=== PATIENT | female | born 1980 | race Hispanic/Latino ===

== ENCOUNTER 2018-11-02 21:12 | Inpatient (IN) | payer MEDICARE ==
--- NOTE | 2018-11-02 21:45 | Emergency Department Report ---
Blank Doc - Documentation Documentation: This is a 38-year-old female that presents with chest pain and hematemesis. Patient is on coumadin. This initial assessment/diagnostic orders/clinical plan/treatment(s) is/are subject to change based on patient's health status, clinical progression and re- assessment by fellow clinical providers in the ED. Further treatment and workup at subsequent clinical providers discretion. Patient/guardians urged not to elope from the ED as their condition may be serious if not clinically assessed and managed. Initial orders include: 1- Patient sent to MAIN ED for further evaluation and treatment 2- labs 3- EKG 4- CXR
[2018-11-02] MEDS ORDERED: NACL 0.9% 1000 ML 1,000 ML IV ONE (22:53)
[2018-11-02] MEDS ORDERED: SUBLIMAZE IV ONE (23:03)
[2018-11-02] MEDS ORDERED: PROTONIX IV ONE (23:03)
[2018-11-02] MEDS ORDERED: ZOFRAN IV ONE (23:03)
--- NOTE | 2018-11-02 23:11 | Emergency Department Report ---
HPI - General Chief Complaint: Chest Pain Time Seen by Provider: 11/02/18 21:42 - HPI HPI: Room 5 The patient is a 38-year-old female presenting with a chief complaint of hematemesis. Patient states her symptoms began 43.5 hours ago with Sharath bright hematemesis. Patient states she then developed substernal chest pain described as a pressure associated with intermittent sharpness radiating to the left shoulder. Patient states it feels as though there is 100 pounds sitting on her chest. Patient denies shortness of breath or diaphoresis. The patient has a history of protein C and S deficiency is currently on Coumadin. The patient states her last INR 1 week ago was approximately 3.2 (INR goal 3.5-4). The patient currently gives her pain score 7/10. Location: [See above] Duration: [See above] Quality: [See above] Severity: [See above] Timing: [See above] Context: [See above] Modifying factors: [See above] Associated signs and symptoms: [see above] ED Past Medical Hx - Past Medical History Previous Medical History?: Yes Hx CVA: Yes Additional medical history: Protein C and S deficiency, coronary artery disease - Surgical History Past Surgical History?: Yes Additional Surgical History: Gastrectomy, small bowel pull-through, herniorrhaphy, PowerPort, angioplasty. Hysterectomy - Family History Family history: no significant - Social History Smoking Status: Never Smoker Substance Use Type: None (denies illicit drug use) - Medications Home Medications: Home Medications Medication Instructions Recorded Confirmed Last Taken Type Aspirin [Aspirin BABY CHEW TAB] 1 tab PO DAILY 11/03/18 11/03/18 Unknown History Citalopram [celeXA] 1 tab PO DAILY 11/03/18 11/03/18 Unknown History Pantoprazole [Protonix TAB] 1 tab PO DAILY 11/03/18 11/03/18 Unknown History Promethazine [Phenergan] 1 tab PO Q8HR PRN 11/03/18 11/03/18 Unknown History Warfarin [Coumadin] 20 mg PO DAILY 11/03/18 11/03/18 Unknown History lamoTRIgine [LaMICtal] 75 mg PO BID 11/03/18 11/03/18 Unknown History ED Review of Systems ROS: Stated complaint: CHEST PAIN, VOMITING BLOOD Other details as noted in HPI Constitutional: denies: diaphoresis Eyes: denies: eye pain ENT: denies: throat pain Respiratory: shortness of breath Cardiovascular: chest pain Endocrine: no symptoms reported Gastrointestinal: nausea, vomiting, hematemesis. denies: abdominal pain Genitourinary: denies: dysuria Musculoskeletal: denies: back pain Neurological: denies: headache Physical Exam - Physical Exam Vital Signs: Vital Signs 11/02/18 21:43 Temperature 99.3 F Pulse Rate 126 H Respiratory 22 Rate Blood Pressure 119/85 O2 Sat by Pulse 100 Oximetry Physical Exam: GENERAL: The patient is well-developed well-nourished female lying on stretcher not appearing to be in acute distress. [] HEENT: Normocephalic. Atraumatic. Extraocular motions are intact. Patient has moist mucous membranes. NECK: Supple. Trachea midline CHEST/LUNGS: Clear to auscultation. There is no respiratory distress noted. HEART/CARDIOVASCULAR: Regular. There is no tachycardia. There is no gallop rub or murmur. ABDOMEN: Abdomen is soft, with mild left upper quadrant and left lower quadrant discomfort to palpation. Patient has normal bowel sounds. There is no abdominal distention. SKIN: There is no rash. There is no edema. There is no diaphoresis. NEURO: The patient is awake, alert, and oriented. The patient is cooperative. The patient has normal speech MUSCULOSKELETAL: There is no evidence of acute injury. ED Course Vital Signs 11/02/18 21:43 Temperature 99.3 F Pulse Rate 126 H Respiratory 22 Rate Blood Pressure 119/85 O2 Sat by Pulse 100 Oximetry ED Medical Decision Making - Lab Data Result diagrams: 11/02/18 23:35 11/02/18 23:35 - EKG Data -: EKG Interpreted by Me EKG shows normal: sinus rhythm Rate: tachycardia (113 bpm) - EKG Data Interpretation: nonspecific ST-T wave anjali (diffuse ST depressions) - Radiology Data Radiology results: report reviewed (chest x-ray), image reviewed (chest x-ray) interpreted by me: Chest x-ray-no focal infiltrates, no pneumothorax. Port in place [facility] [address] [place] [address] XRay Report Signed Patient: JOSE RAMON RIZZO MR#: [id number] : 1980 Acct:[id number] Age/Sex: 38 / F ADM Date: 11/02/18 Loc: ED Attending Dr: Ordering Physician: RO MARTINS MD Date of Service: 11/02/18 Procedure(s): XR chest 1V ap Accession Number(s): [id number] cc: RO MARTINS MD Fluoro Time In Min utes: CHEST 1 VIEW 11/02/2018 11:01 PM INDICATION / CLINICAL INFORMATION: chest pain. COMPARISON: None available. FINDINGS: SUPPORT DEVICES: Right internal jugular Port-A-Cath has tip in SVC. HEART / MEDIASTINUM: No significant abnormality. LUNGS / PLEURA: No significant pulmonary or pleural abnormality. No pneumothorax. ADDITIONAL FINDINGS: Incidental note is made of a right axillary skin fold. IMPRESSION: 1. No acute findings. Signer Name: Maikol Serrano MD Signed: 11/02/2018 11:33 PM Workstation Name: [id number] Transcribed By: TL Dictated By: Maikol Serrano MD Electronically Authenticated By: Maikol Serrano MD Signed Date/Time: 11/02/182332 DD/ 31 TD/TT: - Differential Diagnosis upper GI bleed, ACS, pericarditis, GERD Critical care attestation.: If time is entered above; I have spent that time in minutes in the direct care of this critically ill patient, excluding procedure time. ED Disposition Clinical Impression: Upper GI bleed, Chest pain Disposition: OP ADMIT IP TO THIS HOSP Is pt being admited?: Yes Does the pt Need Aspirin: No Condition: Fair Instructions: Chest Pain (ED) Referrals: PRIMARY CARE, [Primary Care Provider] - 3-5 Days Time of Disposition: 01:14 (Hospitalist paged (Dr. Maritza Baum))
--- NOTE | 2018-11-02 23:37 | XRay Report ---
CHEST 1 VIEW 11/02/2018 11:01 PM INDICATION / CLINICAL INFORMATION: chest pain. COMPARISON: None available. FINDINGS: SUPPORT DEVICES: Right internal jugular Port-A-Cath has tip in SVC. HEART / MEDIASTINUM: No significant abnormality. LUNGS / PLEURA: No significant pulmonary or pleural abnormality. No pneumothorax. ADDITIONAL FINDINGS: Incidental note is made of a right axillary skin fold. IMPRESSION: 1. No acute findings. Signer Name: Maikol Serrano MD Signed: 11/02/2018 11:33 PM Workstation Name: [id number]
[2018-11-02 23:48] LABS: Bilirubin,Urine NEG (Negative); Blood,Urine NEG (Negative); Color,Urine Straw (Yellow); Protein,Urine <15 mg/dL mg/dL (Negative); Urobilinogen,Urine < 2.0 mg/dL (<2.0)
[2018-11-02 23:55] LABS: Amphetamine Screen,Urine PRESUMPTIVE NEGATIVE; Benzodiazepines Screen,Urine PRESUMPTIVE NEGATIVE; Cannabinoid Screen,Urine PRESUMPTIVE NEGATIVE; Cocaine Screen,Urine PRESUMPTIVE NEGATIVE; Methadone Screen,Urine PRESUMPTIVE NEGATIVE; Opiate Screen,Urine PRESUMPTIVE NEGATIVE
[2018-11-03] LABS: Basophils % (Auto) 0.6 % (0.0-1.8); Eosinophils # (Auto) 0.1 K/mm3 (0.0-0.4); Eosinophils % (Auto) 0.9 % (0.0-4.3); Hematocrit 23.7 % (30.3-42.9); Hemoglobin 7.9 gm/dl (10.1-14.3); Lymphocytes # (Auto) 0.9 K/mm3 (1.2-5.4); Lymphocytes % (Auto) 15.7 % (13.4-35.0); Mean Corpuscular HGB Conc 33 % (30-34); Mean Corpuscular Volume 93 fl (79-97); Monocytes # (Auto) 0.6 K/mm3 (0.0-0.8); Monocytes % (Auto) 10.4 % (0.0-7.3); Platelet Count 286 K/mm3 (140-440); Red Blood Count 2.56 M/mm3 (3.65-5.03); Red Cell Distribution Width 13.7 % (13.2-15.2)
[2018-11-03 00:21] LABS: Alanine Aminotransferase 11 units/L (7-56); Albumin 3.8 g/dL (3.9-5); BUN/Creatinine Ratio 13; Blood Urea Nitrogen 9 mg/dL (7-17); Calcium 8.2 mg/dL (8.4-10.2); Hemolysis Index 6
[2018-11-03 00:54] LABS: INR 1.1 (0.87-1.13)
[2018-11-03 00:55] LABS: Partial Thromboplastin Time 29.7 Sec. (24.2-36.6)
[2018-11-03] MEDS ORDERED: SUBLIMAZE IV ONE (01:00)
[2018-11-03] MEDS ORDERED: NITRO-BID 2% TP ONE (01:12)
[2018-11-03] MEDS: KCL 10MEQ/100ML 10 MEQ/100 ML BAG IV SCH ×3 (01:53→04:26)
[2018-11-03] MEDS ORDERED: SODIUM CHLORIDE FLUSH SYRINGE 10 ML IV PRN (03:10)
[2018-11-03] MEDS ORDERED: NITROSTAT SL PRN (03:10)
--- NOTE | 2018-11-03 03:18 | History and Physical Report ---
History of Present Illness Date of examination: 11/03/18 Date of admission: 11/02/2018 Chief complaint: chest pain and hemoptisis History of present illness: Pt is a 38-year-old female with PMHx of CAD s/p angiophy, strake, protein C and S deficiency with multiple blood clots who presents to the ER with c/o chest pain and hematemesis x 1 day. Patient states that she had 3 episodes of bright red blood hematemesis. Pt reports that she also developed a sudden substernal chest pain during vomiting, the pain is a pressure-like pain, it is sharp in nature and radiates to the to the left shoulder. Patient states that she feels like a heavy load was sitting on her chest. Patient reports a h/o CAD and cardiac angioplasty, she had recurrent blood clots with a fasciotomy in the left leg due to protein C and S, she is currently on Coumadin. Pt reports vomiting, denies pleuritic chest pain, she denies SOB, denies diaphoresis, denies recent travelling, denies ill contact, denies fever or chills, denies cough or chest congestion. In the ER, pt's INR was 1.0 today, which was approximately 3.2 one week ago, her chest x-ray was negative for cardiopulmonary findings. Past History Past Medical History: other (protein c&S deficiency) Past Surgical History: hysterectomy, hernia repair, Other (small frederic pull through, angioplasty, Port a cath insertion, gastrectomy) Social history: no significant social history Family history: no significant family history Medications and Allergies Allergies Allergy/AdvReac Type Severity Reaction Status Date / Time ceftriaxone [From Rocephin] Allergy Anaphylaxis Verified 11/02/18 21:51 ciprofloxacin [From Cipro] Allergy Anaphylaxis Verified 11/02/18 21:50 divalproex sodium Allergy Anaphylaxis Verified 11/02/18 21:51 [From Depakote] ketorolac [From Toradol] Allergy Hives Verified 11/02/18 21:49 levofloxacin [From Levaquin] Allergy Anaphylaxis Verified 11/02/18 21:50 metoclopramide [From Reglan] Allergy Hives Verified 11/02/18 21:49 iv contrast Allergy Hives Uncoded 11/02/18 21:49 Home Medications Medication Instructions Recorded Confirmed Last Taken Type Aspirin [Aspirin BABY CHEW TAB] 1 tab PO DAILY 11/03/18 11/03/18 Unknown History Citalopram [celeXA] 1 tab PO DAILY 11/03/18 11/03/18 Unknown History Pantoprazole [Protonix TAB] 1 tab PO DAILY 11/03/18 11/03/18 Unknown History Promethazine [Phenergan] 1 tab PO Q8HR PRN 11/03/18 11/03/18 Unknown History Warfarin [Coumadin] 20 mg PO DAILY 11/03/18 11/03/18 Unknown History lamoTRIgine [LaMICtal] 75 mg PO BID 11/03/18 11/03/18 Unknown History Active Meds: Active Medications Aspirin (Ecotrin) 325 mg PO QDAY ASHLEIGH Potassium Chloride (Kcl 10meq/100ml) 10 meq in 100 mls @ 100 mls/hr IV Q1H ASHLEIGH Stop: 11/03/18 04:59 Last Admin: 11/03/18 03:02 Dose: 100 mls/hr Documented by: Nitroglycerin (Nitrostat) 0.4 mg SL Q5M PRN PRN Reason: Chest Pain Sodium Chloride (Sodium Chloride Flush Syringe 10 Ml) 10 ml IV PRN PRN PRN Reason: LINE FLUSH Review of Systems Cardiovascular: chest pain Respiratory: hemoptysis Exam - Constitutional Vitals: Temp Pulse Resp BP Pulse Ox 98.3 F 84 10 L 115/74 100 11/03/18 00:07 11/03/18 02:30 11/03/18 02:30 11/03/18 02:30 11/03/18 02:30 General appearance: Present: no acute distress - EENT ENT: hearing intact - Neck Neck: Present: normal ROM - Respiratory Respiratory: bilateral: CTA - Cardiovascular Rhythm: other Heart Sounds: Present: S1 & S2, diastolic murmur - Extremities Extremities: no ischemia, No edema, normal color Peripheral Pulses: within normal limits - Abdominal General gastrointestinal: Present: non-tender, non-distended Female genitourinary: Present: deferred - Rectal Rectal Exam: deferred - Integumentary Integumentary: Present: warm, dry - Psychiatric Psychiatric: cooperative - Neurologic Neurologic: moves all extremities Results - Labs CBC & Chem 7: 11/02/18 23:35 11/02/18 23:35 Labs: Laboratory Last Values WBC 5.8 K/mm3 (4.5-11.0) 11/02/18 23:35 RBC 2.56 M/mm3 (3.65-5.03) L 11/02/18 23:35 Hgb 7.9 gm/dl (10.1-14.3) L 11/02/18 23:35 Hct 23.7 % (30.3-42.9) L 11/02/18 23:35 MCV 93 fl (79-97) 11/02/18 23:35 MCH 31 pg (28-32) 11/02/18 23:35 MCHC 33 % (30-34) 11/02/18 23:35 RDW 13.7 % (13.2-15.2) 11/02/18 23:35 Plt Count 286 K/mm3 (140-440) 11/02/18 23:35 Lymph % (Auto) 15.7 % (13.4-35.0) 11/02/18 23:35 [place] % (Auto) 10.4 % (0.0-7.3) H 11/02/18 23:35 Eos % (Auto) 0.9 % (0.0-4.3) 11/02/18 23:35 Baso % (Auto) 0.6 % (0.0-1.8) 11/02/18 23:35 Lymph # 0.9 K/mm3 (1.2-5.4) L 11/02/18 23:35 [place] # 0.6 K/mm3 (0.0-0.8) 11/02/18 23:35 Eos # 0.1 K/mm3 (0.0-0.4) 11/02/18 23:35 Baso # 0.0 K/mm3 (0.0-0.1) 11/02/18 23:35 Seg Neutrophils % 72.4 % (40.0-70.0) H 11/02/18 23:35 Seg Neutrophils # 4.2 K/mm3 (1.8-7.7) 11/02/18 23:35 PT 13.9 Sec. (12.2-14.9) 11/02/18 23:35 INR 1.10 (0.87-1.13) 11/02/18 23:35 APTT 29.7 Sec. (24.2-36.6) 11/02/18 23:35 2395 ng/mlDDU (0-234) H 11/03/18 00:20 Sodium 142 mmol/L (137-145) 11/02/18 23:35 Potassium 3.1 mmol/L (3.6-5.0) L 11/02/18 23:35 Chloride 105.6 mmol/L (98-107) 11/02/18 23:35 Carbon Dioxide 20 mmol/L (22-30) L 11/02/18 23:35 20 mmol/L 11/02/18 23:35 BUN 9 mg/dL (7-17) 11/02/18 23:35 0.7 mg/dL (0.7-1.2) 11/02/18 23:35 Estimated GFR > 60 ml/min 11/02/18 23:35 13 % 11/02/18 23:35 Glucose 149 mg/dL (65-100) H 11/02/18 23:35 Calcium 8.2 mg/dL (8.4-10.2) L 11/02/18 23:35 0.20 mg/dL (0.1-1.2) 11/02/18 23:35 AST 17 units/L (5-40) 11/02/18 23:35 ALT 11 units/L (7-56) 11/02/18 23:35 54 units/L (35-129) 11/02/18 23:35 < 0.010 ng/mL (0.00-0.029) 11/03/18 01:46 6.4 g/dL (6.3-8.2) 11/02/18 23:35 3.8 g/dL (3.9-5) L 11/02/18 23:35 1.5 % 11/02/18 23:35 Straw (Yellow) 11/02/18 23:28 Clear (Clear) 11/02/18 23:28 6.0 (5.0-7.0) 11/02/18 23:28 Ur Specific [place] 1.006 (1.003-1.030) 11/02/18 23:28 <15 mg/dl mg/dL (Negative) 11/02/18 23:28 Neg mg/dL (Negative) 11/02/18 23:28 Neg mg/dL (Negative) 11/02/18 23:28 Neg (Negative) 11/02/18 23:28 Neg (Negative) 11/02/18 23:28 Neg (Negative) 11/02/18 23:28 < 2.0 mg/dL (<2.0) 11/02/18 23:28 Ur Leukocyte Esterase Neg (Negative) 11/02/18 23:28 1.0 /HPF (0.0-6.0) 11/02/18 23:28 2.0 /HPF (0.0-6.0) 11/02/18 23:28 U Epithel Cells (Auto) 5.0 /HPF (0-13.0) 11/02/18 23:28 Presumptive negative 11/02/18 23:28 Presumptive negative 11/02/18 23:28 Ur Barbiturates Screen Presumptive negative 11/02/18 23:28 Ur Phencyclidine Scrn Presumptive negative 11/02/18 23:28 Ur Amphetamines Screen Presumptive negative 11/02/18 23:28 U Benzodiazepines Scrn Presumptive negative 11/02/18 23:28 Presumptive negative 11/02/18 23:28 U Marijuana (THC) Screen Presumptive negative 11/02/18 23:28 Disclamer 11/02/18 23:28 Blood Type O POSITIVE 11/02/18 23:50 Antibody Screen Negative 11/02/18 23:50 Assessment and Plan Assessment and plan: Chest pain r/o ACS vrs other etiology Hemoptisis (likely due to coumadin therapy) H/o protein C&S deficiency CAD (h/o angioplasty) CVA no residual deficits H/o MVP Multiple DVTs (on Cou[place]) Subtherapeutic INR Hypokalemia Plan: Admit to medtele Consult cardiology Consult hematology CT of the chest to r/o PE Continue CE q6hr x 2 more Monitor vital signs q4hr Continue home meds (hold coumadin, due to hemoptisis) Replace K+ Plan of care d/w pt, voiced understading Pt's condition and plan of care d/w Dr Baum Advance Directives: Yes Plan of care discussed with patient/family: Yes
--- NOTE | 2018-11-03 06:07 | Event Note ---
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 Also stated that she had 4 episodes of hematemesis. She is maintained on 20 mg of Coumadin and yesterday her INR was therapeutic. Physical exam is benign no hematemesis noted in the emergency room. After check to d-dimer which is elevated, we'll go ahead and obtain a CT chest to rule out PE. In addition consult GI and hematology. He would stress test and cardiac enzymes. Discussed with nurse practitioner
[2018-11-03] MEDS ORDERED: LEXISCAN IV ONE (07:01)
[2018-11-03 08:46] LABS: Iron 35 ug/dL (37-170); Total Iron Binding Capacity 246 mcg/dL (250-450)
--- NOTE | 2018-11-03 08:54 | Event Note ---
Date: 11/03/18 This is a follow-up from an admission earlier this morning. Patient seen and examined. We will continue the plan as outlined in H&P. Await CTA of the chest and GI consultation.
[2018-11-03 10:04] LABS: BUN/Creatinine Ratio 13; Blood Urea Nitrogen 9 mg/dL (7-17); Calcium 8.3 mg/dL (8.4-10.2); Chol/HDL Ratio 2.16 %; HDL Cholesterol 54 mg/dL (40-59); Hemolysis Index 5; LDL Cholesterol,Direct 62 mg/dL (50-130)
[2018-11-03] MEDS: MORPHINE IV PRN ×2 (12:33→18:15)
--- NOTE | 2018-11-03 14:25 | Nuclear Medicine Report ---
VENTILATION PERFUSION PULMONARY SCINTIGRAPHY HISTORY: shortness of breath COMPARISON: 11/02/18 chest radiograph. TECHNIQUE: Radiopharmaceutical was inhaled. Tc-99m-MAA was then injected. Ventilation and perfusion images were acquired. RADIOPHARMACEUTICAL: 7.5 mCi of Xe-133 inhaled 5.2 mCi of Tc-99m-MAA injected FINDINGS: VENTILATION: No significant air trapping or defect. PERFUSION: No significant segmental or non-segmental defect. Additional Findings: None. IMPRESSION: 1. Low probability for pulmonary embolism. Signer Name: Vance Correa Jr, MD Signed: 11/03/2018 2:21 PM Workstation Name: [id number]
[2018-11-03] MEDS ORDERED: FLUSH HEPARIN IV ONE ×4 (15:42→17:59)
[2018-11-03] MEDS: ZOFRAN IV PRN (15:56)
[2018-11-03] MEDS: NACL 0.9% 1000 ML 1,000 ML IV SCH (15:56)
[2018-11-03 16:17] LABS: Basophils % (Auto) 0.9 % (0.0-1.8); Eosinophils # (Auto) 0.1 K/mm3 (0.0-0.4); Eosinophils % (Auto) 2.4 % (0.0-4.3); Hemoglobin 6.1 gm/dl (10.1-14.3); Lymphocytes # (Auto) 0.5 K/mm3 (1.2-5.4); Lymphocytes % (Auto) 22.1 % (13.4-35.0); Mean Corpuscular HGB Conc 33 % (30-34); Mean Corpuscular Volume 96 fl (79-97); Monocytes # (Auto) 0.3 K/mm3 (0.0-0.8); Monocytes % (Auto) 12.2 % (0.0-7.3); Platelet Count 133 K/mm3 (140-440); Red Cell Distribution Width 14.2 % (13.2-15.2)
[2018-11-03 16:45] LABS: Red Blood Count 1.97 M/mm3 (3.65-5.03)
[2018-11-03 16:51] LABS: Hematocrit 18.9 % (30.3-42.9)
[2018-11-03] MEDS ORDERED: NACL 0.9% 500 ML 500 ML IV NR (17:05)
[2018-11-03 18:29] LABS: Hematocrit 25.9 % (30.3-42.9); Hemoglobin 8.7 gm/dl (10.1-14.3); Mean Corpuscular HGB Conc 34 % (30-34); Mean Corpuscular Volume 93 fl (79-97); Platelet Count 209 K/mm3 (140-440); Red Blood Count 2.79 M/mm3 (3.65-5.03); Red Cell Distribution Width 14.1 % (13.2-15.2)
--- NOTE | 2018-11-03 18:30 | Event Note ---
Date: 11/03/18 - full GI consult dictated - awaiting w/u for possible P.E> and then cardiac clearance for egd - will follow
[2018-11-03 18:58] LABS: INR 1.15 (0.87-1.13)
[2018-11-03 20:25] LABS: Partial Thromboplastin Time 222.7 Sec. (24.2-36.6)
[2018-11-03] MEDS ORDERED: DILAUDID IV ONE (21:02)
[2018-11-03 22:02] LABS: Basophils % (Auto) 0.8 % (0.0-1.8); Eosinophils # (Auto) 0.1 K/mm3 (0.0-0.4); Eosinophils % (Auto) 3.9 % (0.0-4.3); Hematocrit 25.2 % (30.3-42.9); Hemoglobin 8.4 gm/dl (10.1-14.3); Lymphocytes # (Auto) 1.2 K/mm3 (1.2-5.4); Lymphocytes % (Auto) 40.7 % (13.4-35.0); Mean Corpuscular HGB Conc 34 % (30-34); Mean Corpuscular Volume 93 fl (79-97); Monocytes # (Auto) 0.4 K/mm3 (0.0-0.8); Platelet Count 215 K/mm3 (140-440); Red Blood Count 2.71 M/mm3 (3.65-5.03); Red Cell Distribution Width 13.9 % (13.2-15.2)
[2018-11-03] MEDS: LaMICtal PO SCH (22:17)
[2018-11-03] MEDS ORDERED: PEPCID PO ONE (23:00)
[2018-11-03] MEDS ORDERED: BENADRYL PO NR (23:08)
[2018-11-03] MEDS ORDERED: DELTASONE PO ONE (23:15)
[2018-11-04] MEDS: DILAUDID IV PRN ×4 (00:26→23:38)
[2018-11-04] MEDS ORDERED: BENADRYL PO ONE ×2 (04:00→12:00)
[2018-11-04] MEDS ORDERED: PEPCID PO ONE ×2 (04:00→12:00)
[2018-11-04] MEDS ORDERED: DELTASONE PO ONE ×2 (04:00→12:00)
[2018-11-04] MEDS: NACL 0.9% 1000 ML 1,000 ML IV SCH ×2 (04:35→16:57)
[2018-11-04 04:56] LABS: Basophils % (Auto) 0.4 % (0.0-1.8); Eosinophils % (Auto) 0.1 % (0.0-4.3); Hematocrit 31.1 % (30.3-42.9); Hemoglobin 10.4 gm/dl (10.1-14.3); Lymphocytes # (Auto) 0.4 K/mm3 (1.2-5.4); Lymphocytes % (Auto) 12.6 % (13.4-35.0); Mean Corpuscular HGB Conc 33 % (30-34); Mean Corpuscular Volume 92 fl (79-97); Monocytes # (Auto) 0.1 K/mm3 (0.0-0.8); Monocytes % (Auto) 2.8 % (0.0-7.3); Platelet Count 216 K/mm3 (140-440); Red Blood Count 3.37 M/mm3 (3.65-5.03); Red Cell Distribution Width 13.9 % (13.2-15.2)
[2018-11-04 05:14] LABS: BUN/Creatinine Ratio 10; Blood Urea Nitrogen 6 mg/dL (7-17); Calcium 8.6 mg/dL (8.4-10.2); Hemolysis Index 3
[2018-11-04] MEDS: LaMICtal PO SCH ×2 (10:29→21:40)
[2018-11-04] MEDS: ECOTRIN PO SCH (10:29)
[2018-11-04] MEDS: ZOFRAN IV PRN ×2 (10:30→18:39)
[2018-11-04] MEDS: MORPHINE IV PRN ×2 (10:30→18:39)
--- NOTE | 2018-11-04 10:54 | Event Note ---
Date: 11/03/18 [id number]
[2018-11-04] MEDS ORDERED: FERRLECIT 125 MG in NACL 0.9% 100 ML IV ONE (10:56)
--- NOTE | 2018-11-04 10:58 | Consultation ---
REFERRING PHYSICIAN: Valeriano Montoya MD. INDICATIONS: 1. Hematemesis. 2. Anemia. HISTORY OF PRESENT ILLNESS: The patient is a 38-year-old white female with history of coronary artery disease, CVA, protein C and S deficiency, now been seen by GI for signs of upper gastrointestinal bleed. Per patient, she is status post subtotal gastrectomy in the past. The patient reports she is on Coumadin for protein C and protein S deficiency. The patient reports that she started having epigastric area chest pain with some nausea and then had multiple bouts of bright red and coffee-ground emesis. The patient should be noted to have history of pulmonary embolism in the past. The patient subsequently came to the Emergency Room. She reports no melena. She reports no recent diet or medication changes. The patient subsequently was admitted and GI consulted. PAST MEDICAL HISTORY: 1. Protein C and protein S deficiency. 2. Status post cerebrovascular accident. 3. Coronary artery disease, status post angioplasty. PAST SURGICAL HISTORY: 1. Status post hysterectomy. 2. Status post hernia repair. 3. Reported status post total gastrectomy. MEDICATIONS: Reviewed and updated in chart. ALLERGIES: CEFTRIAXONE, CIPRO, DEPAKOTE, TORADOL, LEVAQUIN, REGLAN. SOCIAL HISTORY: Denies alcohol, tobacco or drug abuse. FAMILY HISTORY: Negative for colon cancer, IBD, or liver disease. REVIEW OF SYSTEMS: GENERAL: Reports mild weakness. HEENT: No visual complaints or tinnitus. PULMONARY: No shortness of breath. No cough. No chest pain. GASTROINTESTINAL: Reports epigastric pain and hematemesis. All points of 13-point review of systems otherwise negative. PHYSICAL EXAMINATION: VITAL SIGNS: Temperature of 98.6, pulse 77, respiration 18, blood pressure 120/74. GENERAL: Fairly thin female in no acute distress. HEENT: Pupils equal, round and reactive. PULMONARY: Clear to auscultation bilaterally. CARDIOVASCULAR: Regular rate and rhythm. Normal S1, S2. ABDOMEN: Positive bowel sounds, soft. SKIN: No obvious rashes. LABORATORY DATA: Pertinent for white count of 5.8, hemoglobin and hematocrit of 7.9 and 23.7, platelet count of 286. Coags within normal limits. Chem-7 pertinent for potassium of 5.1. ASSESSMENT AND PLAN: A 38-year-old female with multiple past medical history including status post gastrectomy in the past and history of protein C and protein S deficiency and reported history of a pulmonary embolism in the past, on Coumadin, presented now with epigastric and chest pain with reported coffee-ground and bloody emesis. The patient shows signs of upper gastrointestinal bleed, but given her history of PE and cardiac disease, evaluation and other management is necessary. PLAN: 1. The patient is currently awaiting CTA versus a V/Q scan to rule out pulmonary embolism. 2. The patient has also been seen by Cardiology with plans for stress test. 3. We will follow hematocrit and transfuse as needed. 4. PPI IV b.i.d. 5. When cleared from a Cardiology standpoint as well as pulmonary standpoint, the patient will require EGD. 6. We will follow further recommendation based on progress. [facility]# [id number] CAB/NTS
--- NOTE | 2018-11-04 14:16 | Cat Scan Report ---
CT ABDOMEN AND PELVIS WITHOUT CONTRAST, 11/04/2018 INDICATION: Generalized abdominal pain. TECHNICAL: Multiple axial CT images of the abdomen and pelvis were acquired without intravenous contr ast. Sagittal and coronal reformats were obtained. All CTs at this facility utilize dose reduction techniques including automated exposure control, iterative reconstruction and weight based dosing whe n appropriate to reduce patient radiation dose to as low as reasonable achievable. COMPARISON: No relevant prior studies are available for comparison. FINDINGS: Limited imaging of the bilateral lung bases demonstrates no evidence of acute abnormality. Abdomen: Postsurgical changes of the stomach are noted. The gallbladder has been removed. Within the limitations of today's noncontrast technique, the pancreas, spleen, bilateral adrenal glands and bila teral kidneys show no definitive evidence of acute abnormality. Postsurgical changes are seen within the left abdomen. There is no evidence of bowel obstruction. Pelvis: No free fluid is seen in the pelvis. The urinary bladder appears grossly normal. Evaluation of bony structures demonstrates no evidence of acute bony abnormality. Evaluation of soft tissue structures demonstrates no evidence of acute soft tissue abnormality. IMPRESSION: 1. No CT evidence of acute inflammatory process within the abdomen or pelvis. 2. Additional findings as above. Signer Name: Roslyn Cruz MD Signed: 11/04/2018 2:11 PM Workstation Name: [id number]
--- NOTE | 2018-11-04 14:20 | Cat Scan Report ---
CT chest with and without contrast, 11/04/2018 Clinical information: Shortness of breath. History of pulmonary embolism. Technical: Multiple axial CT images of the chest were acquired with and without intravenous contrast. Sagittal and coronal reformats were obtained. All CTs at this facility utilized dose reduction techn iques including automated exposure control, iterative reconstruction and weight based dosing when yoel ropriate to reduce patient radiation dose to as low as reasonably achievable. Comparison: No relevant prior studies are available for comparison. Findings: The heart is normal in size. The thoracic aorta is normal in caliber. There is no evidence of pleural or pericardial effusion. Evaluation of the lung parenchyma shows no focal airspace disease. Evaluation of bony structures demonstrates no evidence of acute bony abnormality. Impression: 1. No evidence of acute pleural or parenchymal abnormality. Signer Name: Roslyn Cruz MD Signed: 11/04/2018 2:16 PM Workstation Name: [id number]
--- NOTE | 2018-11-04 14:47 | Progress Note ---
Assessment and Plan 1. Hematemesis - by report. Pt hemodynamically stable, and Hgb good. Pt states she has had this ongoing, and is s/p EGD 4 months ago with treatment of some type of ulcer. Also, she is s/p gastrectomy in ~ 2017, but the indication is unknown. - she may well have an anastomotic ulcer, and warrants EGD. - will await Cardiac clearance per Hospitalist prior to endoscopy, unless pt acutely decompensates and needs urgent EGD. - CT report noted, and unremarkable. - meantime, monitor H/H and transfuse as needed 2. Protein C and S deficiency - per Hematology. Subjective Date of service: 11/04/18 Interval history: Pt reports emesis of blood and dark material once this AM. No abd pain, N/V. Last BM was brown yesterday. Received 1 u pRBC, even after Hgb = 8.4. Objective - Constitutional Vitals: Vital Signs - 12hr 11/04/18 11/04/18 11/04/18 04:47 09:12 10:00 Temperature 98.0 F 97.9 F Pulse Rate 86 90 85 Respiratory 18 16 Rate Blood Pressure 120/85 122/82 O2 Sat by Pulse 98 100 Oximetry General appearance: Present: no acute distress - EENT Eyes: PERRL, EOM intact ENT: hearing intact - Gastrointestinal General gastrointestinal: Present: soft, non-tender - Labs CBC & Chem 7: 11/04/18 04:42 11/04/18 04:42 Labs: Abnormal lab results 11/03/18 11/03/18 11/03/18 Range/Units 16:00 17:40 17:40 WBC 2.5 L 3.4 L (4.5-11.0) K/mm3 RBC 1.97 L 2.79 L (3.65-5.03) M/mm3 Hgb 6.1 L 8.7 L (10.1-14.3) gm/dl Hct 18.9 L* 25.9 L D (30.3-42.9) % Plt Count 133 L (140-440) K/mm3 Lymph % (Auto) (13.4-35.0) % [place] % (Auto) 12.2 H (0.0-7.3) % Lymph # 0.5 L (1.2-5.4) K/mm3 Seg Neutrophils % (40.0-70.0) % Seg Neutrophils # 1.5 L (1.8-7.7) K/mm3 INR (0.87-1.13) APTT (24.2-36.6) Sec. BUN (7-17) mg/dL Creatinine (0.7-1.2) mg/dL Glucose (65-100) mg/dL Crossmatch See Detail 11/03/18 11/03/18 11/04/18 Range/Units 17:40 Unknown 04:42 WBC 2.8 L 2.9 L (4.5-11.0) K/mm3 RBC 2.71 L 3.37 L (3.65-5.03) M/mm3 Hgb 8.4 L (10.1-14.3) gm/dl Hct 25.2 L (30.3-42.9) % Plt Count (140-440) K/mm3 Lymph % (Auto) 40.7 H 12.6 L (13.4-35.0) % [place] % (Auto) 13.0 H (0.0-7.3) % Lymph # 0.4 L (1.2-5.4) K/mm3 Seg Neutrophils % 84.1 H (40.0-70.0) % Seg Neutrophils # 1.2 L (1.8-7.7) K/mm3 INR 1.15 H (0.87-1.13) APTT 222.7 H* (24.2-36.6) Sec. BUN (7-17) mg/dL Creatinine (0.7-1.2) mg/dL Glucose (65-100) mg/dL Crossmatch 11/04/18 Range/Units 04:42 WBC (4.5-11.0) K/mm3 RBC (3.65-5.03) M/mm3 Hgb (10.1-14.3) gm/dl Hct (30.3-42.9) % Plt Count (140-440) K/mm3 Lymph % (Auto) (13.4-35.0) % [place] % (Auto) (0.0-7.3) % Lymph # (1.2-5.4) K/mm3 Seg Neutrophils % (40.0-70.0) % Seg Neutrophils # (1.8-7.7) K/mm3 INR (0.87-1.13) APTT (24.2-36.6) Sec. BUN 6 L (7-17) mg/dL Creatinine 0.6 L (0.7-1.2) mg/dL Glucose 136 H (65-100) mg/dL Crossmatch Medications & Allergies - Medications Allergies/Adverse Reactions: Allergies ceftriaxone [From Rocephin] Allergy (Verified 11/02/18 21:51) Anaphylaxis ciprofloxacin [From Cipro] Allergy (Verified 11/02/18 21:50) Anaphylaxis divalproex sodium [From Depakote] Allergy (Verified 11/02/18 21:51) Anaphylaxis ketorolac [From Toradol] Allergy (Verified 11/02/18 21:49) Hives levofloxacin [From Levaquin] Allergy (Verified 11/02/18 21:50) Anaphylaxis metoclopramide [From Reglan] Allergy (Verified 11/02/18 21:49) Hives iv contrast Allergy (Uncoded 11/02/18 21:49) Hives Home Medications: Home Medications Medication Instructions Recorded Confirmed Last Taken Type Aspirin [Aspirin BABY CHEW TAB] 1 tab PO DAILY 11/03/18 11/03/18 Unknown History Citalopram [celeXA] 1 tab PO DAILY 11/03/18 11/03/18 Unknown History Pantoprazole [Protonix TAB] 1 tab PO DAILY 11/03/18 11/03/18 Unknown History Promethazine [Phenergan] 1 tab PO Q8HR PRN 11/03/18 11/03/18 Unknown History Warfarin [Coumadin] 20 mg PO DAILY 11/03/18 11/03/18 Unknown History lamoTRIgine [LaMICtal] 75 mg PO BID 11/03/18 11/03/18 Unknown History Active Medications: Generic Name Dose Route Start Last Admin Trade Name Freq PRN Reason Stop Dose Admin Aspirin 325 mg 11/04/18 10:00 11/04/18 10:29 Ecotrin PO Not Given QDAY ASHLEIGH Diphenhydramine HCl 50 mg 11/03/18 23:08 11/03/18 22:52 Benadryl PO 11/04/18 23:07 50 mg ONCE NR Administration Hydromorphone HCl 0.5 mg 11/03/18 22:21 11/04/18 14:13 Dilaudid IV 0.5 mg Q3H PRN Administration Pain , Severe (7-10) Sodium Chloride 1,000 mls @ 100 mls/hr 11/03/18 16:00 11/04/18 04:35 Nacl 0.9% 1000 Ml IV 100 mls/hr DIRECT ASHLEIGH Administration Lamotrigine 75 mg 11/03/18 22:00 11/04/18 10:29 Lamictal PO 75 mg BID SAHLEIGH Administration Morphine Sulfate 2 mg 11/03/18 12:22 11/04/18 10:30 Morphine IV 2 mg Q4H PRN Administration Pain, Moderate (4-6) Nitroglycerin 0.4 mg 11/03/18 03:10 11/03/18 20:36 Nitrostat SL 0.4 mg Q5M PRN Administration Chest Pain Ondansetron HCl 4 mg 11/03/18 15:00 11/04/18 10:30 Zofran IV 4 mg Q6H PRN Administration Nausea Sodium Chloride 10 ml 11/03/18 03:10 Sodium Chloride Flush Syringe 10 Ml IV PRN PRN LINE FLUSH
--- NOTE | 2018-11-04 16:01 | Progress Note ---
Assessment and Plan Assessment and plan: Hematemesis. GI consulted. EGD per GI after Cardiac clearance. Hypercoagulable. Prot C an S def. Hold on A/C given bleeding. After endoscopy, resume if ok with GI. Heme recommends d/c home with BID lovenox Chest pain. CT with no mention of PE. V/Q negative. Cardiology consulted Abd pain. CT A/P negative. Hx of CVA History Interval history: no new issues Hospitalist Physical - Constitutional Vitals: Temp Pulse Resp BP Pulse Ox 97.9 F 85 16 122/82 100 11/04/18 09:12 11/04/18 10:00 11/04/18 09:12 11/04/18 09:12 11/04/18 09:12 General appearance: Present: no acute distress - EENT Eyes: Present: PERRL, EOM intact ENT: hearing intact, clear oral mucosa, dentition normal - Neck Neck: Present: supple, normal ROM - Respiratory Respiratory effort: normal Respiratory: bilateral: CTA - Cardiovascular Rhythm: regular Heart Sounds: Present: S1 & S2. Absent: gallop, rub - Extremities Extremities: no ischemia, No edema, Full ROM - Abdominal General gastrointestinal: soft, non-tender, non-distended, normal bowel sounds - Integumentary Integumentary: Present: clear, warm, dry - Neurologic Neurologic: CNII-XII intact, moves all extremities Results - Labs CBC & Chem 7: 11/04/18 04:42 11/04/18 04:42 Labs: Laboratory Last Values WBC 2.9 K/mm3 (4.5-11.0) L 11/04/18 04:42 RBC 3.37 M/mm3 (3.65-5.03) L 11/04/18 04:42 Hgb 10.4 gm/dl (10.1-14.3) 11/04/18 04:42 Hct 31.1 % (30.3-42.9) 11/04/18 04:42 MCV 92 fl (79-97) 11/04/18 04:42 MCH 31 pg (28-32) 11/04/18 04:42 MCHC 33 % (30-34) 11/04/18 04:42 RDW 13.9 % (13.2-15.2) 11/04/18 04:42 Plt Count 216 K/mm3 (140-440) 11/04/18 04:42 Lymph % (Auto) 12.6 % (13.4-35.0) L 11/04/18 04:42 [place] % (Auto) 2.8 % (0.0-7.3) 11/04/18 04:42 Eos % (Auto) 0.1 % (0.0-4.3) 11/04/18 04:42 Baso % (Auto) 0.4 % (0.0-1.8) 11/04/18 04:42 Lymph # 0.4 K/mm3 (1.2-5.4) L 11/04/18 04:42 [place] # 0.1 K/mm3 (0.0-0.8) 11/04/18 04:42 Eos # 0.0 K/mm3 (0.0-0.4) 11/04/18 04:42 Baso # 0.0 K/mm3 (0.0-0.1) 11/04/18 04:42 Seg Neutrophils % 84.1 % (40.0-70.0) H 11/04/18 04:42 Seg Neutrophils # 2.5 K/mm3 (1.8-7.7) 11/04/18 04:42 PT 14.4 Sec. (12.2-14.9) 11/03/18 17:40 INR 1.15 (0.87-1.13) H 11/03/18 17:40 APTT 222.7 Sec. (24.2-36.6) H* 11/03/18 17:40 2395 ng/mlDDU (0-234) H 11/03/18 00:20 Sodium 139 mmol/L (137-145) 11/04/18 04:42 Potassium 4.5 mmol/L (3.6-5.0) D 11/04/18 04:42 Chloride 105.0 mmol/L (98-107) 11/04/18 04:42 Carbon Dioxide 22 mmol/L (22-30) 11/04/18 04:42 17 mmol/L 11/04/18 04:42 BUN 6 mg/dL (7-17) L 11/04/18 04:42 0.6 mg/dL (0.7-1.2) L 11/04/18 04:42 Estimated GFR > 60 ml/min 11/04/18 04:42 10 % 11/04/18 04:42 Glucose 136 mg/dL (65-100) H 11/04/18 04:42 Calcium 8.6 mg/dL (8.4-10.2) 11/04/18 04:42 Iron 35 ug/dL (37-170) L 11/03/18 Unknown TIBC 246 mcg/dL (250-450) L 11/03/18 Unknown 155.3 ng/mL (13.0-400.0) 11/03/18 Unknown 0.20 mg/dL (0.1-1.2) 11/02/18 23:35 AST 17 units/L (5-40) 11/02/18 23:35 ALT 11 units/L (7-56) 11/02/18 23:35 54 units/L (35-129) 11/02/18 23:35 < 0.010 ng/mL (0.00-0.029) 11/03/18 Unknown 6.4 g/dL (6.3-8.2) 11/02/18 23:35 3.8 g/dL (3.9-5) L 11/02/18 23:35 1.5 % 11/02/18 23:35 Triglycerides 76 mg/dL (2-149) 11/03/18 Unknown Cholesterol 117 mg/dL (50-199) 11/03/18 Unknown 62 mg/dL (50-130) 11/03/18 Unknown 54 mg/dL (40-59) 11/03/18 Unknown 2.16 % 11/03/18 Unknown Vitamin B12 740.3 pg/mL (211-911) 11/03/18 Unknown 13.36 ng/mL (7.3-26.0) 11/03/18 Unknown Straw (Yellow) 11/02/18 23:28 Clear (Clear) 11/02/18 23:28 6.0 (5.0-7.0) 11/02/18 23:28 Ur Specific [place] 1.006 (1.003-1.030) 11/02/18 23:28 <15 mg/dl mg/dL (Negative) 11/02/18 23:28 Neg mg/dL (Negative) 11/02/18 23:28 Neg mg/dL (Negative) 11/02/18 23:28 Neg (Negative) 11/02/18 23:28 Neg (Negative) 11/02/18 23:28 Neg (Negative) 11/02/18 23:28 < 2.0 mg/dL (<2.0) 11/02/18 23:28 Ur Leukocyte Esterase Neg (Negative) 11/02/18 23:28 1.0 /HPF (0.0-6.0) 11/02/18 23:28 2.0 /HPF (0.0-6.0) 11/02/18 23:28 U Epithel Cells (Auto) 5.0 /HPF (0-13.0) 11/02/18 23:28 Presumptive negative 11/02/18 23:28 Presumptive negative 11/02/18 23:28 Ur Barbiturates Screen Presumptive negative 11/02/18 23:28 Ur Phencyclidine Scrn Presumptive negative 11/02/18 23:28 Ur Amphetamines Screen Presumptive negative 11/02/18 23:28 U Benzodiazepines Scrn Presumptive negative 11/02/18 23:28 Presumptive negative 11/02/18 23:28 U Marijuana (THC) Screen Presumptive negative 11/02/18 23:28 Disclamer 11/02/18 23:28 Blood Type O POSITIVE 11/03/18 17:40 Antibody Screen Negative 11/03/18 17:40 Crossmatch See Detail 11/03/18 17:40 Active Medications - Current Medications Current Medications: Generic Name Dose Route Start Last Admin Trade Name Freq PRN Reason Stop Dose Admin Aspirin 325 mg 11/04/18 10:00 11/04/18 10:29 Ecotrin PO Not Given QDAY ASHLEIGH Diphenhydramine HCl 50 mg 11/03/18 23:08 11/03/18 22:52 Benadryl PO 11/04/18 23:07 50 mg ONCE NR Administration Hydromorphone HCl 0.5 mg 11/03/18 22:21 11/04/18 14:13 Dilaudid IV 0.5 mg Q3H PRN Administration Pain , Severe (7-10) Sodium Chloride 1,000 mls @ 100 mls/hr 11/03/18 16:00 11/04/18 04:35 Nacl 0.9% 1000 Ml IV 100 mls/hr DIRECT ASHLEIGH Administration Lamotrigine 75 mg 11/03/18 22:00 11/04/18 10:29 Lamictal PO 75 mg BID ASHLEIGH Administration Morphine Sulfate 2 mg 11/03/18 12:22 11/04/18 10:30 Morphine IV 2 mg Q4H PRN Administration Pain, Moderate (4-6) Nitroglycerin 0.4 mg 11/03/18 03:10 11/03/18 20:36 Nitrostat SL 0.4 mg Q5M PRN Administration Chest Pain Ondansetron HCl 4 mg 11/03/18 15:00 11/04/18 10:30 Zofran IV 4 mg Q6H PRN Administration Nausea Sodium Chloride 10 ml 11/03/18 03:10 Sodium Chloride Flush Syringe 10 Ml IV PRN PRN LINE FLUSH Nutrition/Malnutrition Assess - Dietary Evaluation Nutrition/Malnutrition Findings: Nutrition Notes Start: 11/03/18 11:54 Freq: Status: Active Protocol: Document 11/03/18 11:56 CW (Rec: 11/03/18 13:17 CW [id number]) Co-Sign 11/03/18 11:56 LP Nutrition Notes Need for Assessment generated from: [facility] Initial or Follow up Assessment Current Diagnosis Malnutrition Other Pertinent Diagnosis Upper GI Bleed; Chest Pain; gastrectomy Current Diet NPO Labs/Tests reviewed Pertinent Medications warfarin; zofran; phenergan Height 5 ft 4 in Weight 48.7 kg Usual Body Weight 230 kg [place] Body Weight (kg) 54.54 BMI 18.4 Intake Prior to Admission Excellent Weight change and time frame pt. states 130 lbs wt loss since february (9 months) (43% wt. loss) Weight Status Underweight Subjective/Other Information Pt. states she does not have an appetite and is following NPO diet order. Pt. states vomiting began yesterday. PMHx of TPN; Waiting GI consult Burn Absent Trauma Absent GI Symptoms Vomiting Food Allergy No Current % PO Negligible Minimum of two criteria Yes Interpretation of Weight Loss (severe) >10% in 6 months Body Fat Depletion Mild depletion (non-severe) #1 Nutrition Diagnosis Malnutrition Etiology R/T gastrectomy As Evidenced by Signs and Symptoms BMI of 18.4, 43% weight loss since in 9 mo, depletion of body fat Is patient on ventilator? No Is Patient Ambulatory and/or Out of Bed Yes REE-([place]-ambulatory/OOB) [ 7114.600 [id number]] Kcal/Kg value to use for calculation 35 Approximate Energy Requirements Using 1705 kcal/Kg Calculation Used for Recommendations Kcal/kg Additional Notes Protein Needs: 58 - 73 g (1.2 - 1.5 g/ kg) Fluid Needs: 1 mL/ kcal Nutrition Intervention Change Diet Order: advance diet as feasible Goal #1 diet advancement Anticipated Discharge Needs: unable to determine at this time Follow-Up By: 11/06/18 Additional Comments Follow up bib diet advancement / intake
--- NOTE | 2018-11-04 18:08 | Hem/Onc Progress Note ---
Assessment and Plan 1. History of hematemesis and history of gastrointestinal surgery. The patient is on Coumadin for history of pulmonary embolism, protein C and S deficiency. INR is fluctuating. The patient tried Eliquis in 2017. Had a thromboembolic phenomenon at that time. 3. Anemia, likely secondary to iron deficiency. 4. History of gastric surgery. The patient has received intravenous iron in the past. 5. Because of hemoptysis, anticoagulation was on hold. Once the GI team clears for anticoagulation, we can look into Lovenox. As a residential with somewhat fluctuation in Coumadin and the large dose of Coumadin, Lovenox twice a day at 1 mg/kg or once a day at 1.5 mg/kg is an option. The patient will follow up with Dr. Carballo as an outpatient. We will look into iron support. 6. The patient has a port placement. 7. History of bowel surgery and bowel discomfort. IV iron CT chest and CT abdo d/w dr Montoya if no bleeding - I prefer Lovenox sq instead of coumadin - Patient Problems (1) Protein S deficiency Current Visit: Yes Status: Chronic (2) Pulmonary emboli Current Visit: Yes Status: Acute Qualifiers: Chronicity: chronic (3) Anemia Current Visit: Yes Status: Acute Qualifiers: Anemia type: iron deficiency Subjective Date of service: 11/04/18 Principal diagnosis: h/o protein s def - anemia Interval history: h/o hemetemesis Objective - Exam Narrative Exam: Pain - none General appearance - breathing better Performance status limited self care Eyes - no icterus, pallor + ENT - no bleeding LNs cervical not palpable Neck - no LN Respiratory Normal Breath sounds - CTA CVS S1 S2 + Extremities no edema General GI Soft Rectal deferred female - deferred Skin warm Musculoskeletal moving extremitites Neurologically awake - oriented - Constitutional Vitals: Last Vital Signs Temp 98.9 F 11/04/18 16:53 Pulse 96 H 11/04/18 16:53 Resp 16 11/04/18 16:53 BP 127/84 11/04/18 16:53 Pulse Ox 96 11/04/18 16:53 - Labs Lab Results: Laboratory Results - last 24 hr 11/03/18 11/03/18 11/03/18 17:40 17:40 17:40 WBC 3.4 L RBC 2.79 L Hgb 8.7 L Hct 25.9 L D MCV 93 MCH 31 MCHC 34 RDW 14.1 Plt Count 209 Lymph % (Auto) [place] % (Auto) Eos % (Auto) Baso % (Auto) Lymph # [place] # Eos # Baso # Seg Neutrophils % Seg Neutrophils # PT INR APTT Sodium Potassium Chloride Carbon Dioxide Anion Gap BUN Creatinine Estimated GFR BUN/Creatinine Ratio Glucose Calcium Troponin T < 0.010 Blood Type O POSITIVE Antibody Screen Negative Crossmatch See Detail 11/03/18 11/03/18 11/04/18 17:40 Unknown 04:42 WBC 2.8 L 2.9 L RBC 2.71 L 3.37 L Hgb 8.4 L 10.4 Hct 25.2 L 31.1 MCV 93 92 MCH 31 31 MCHC 34 33 RDW 13.9 13.9 Plt Count 215 216 Lymph % (Auto) 40.7 H 12.6 L [place] % (Auto) 13.0 H 2.8 Eos % (Auto) 3.9 0.1 Baso % (Auto) 0.8 0.4 Lymph # 1.2 0.4 L [place] # 0.4 0.1 Eos # 0.1 0.0 Baso # 0.0 0.0 Seg Neutrophils % 41.6 84.1 H Seg Neutrophils # 1.2 L 2.5 PT 14.4 INR 1.15 H APTT 222.7 H* Sodium Potassium Chloride Carbon Dioxide Anion Gap BUN Creatinine Estimated GFR BUN/Creatinine Ratio Glucose Calcium Troponin T Blood Type Antibody Screen Crossmatch 11/04/18 04:42 WBC RBC Hgb Hct MCV MCH MCHC RDW Plt Count Lymph % (Auto) [place] % (Auto) Eos % (Auto) Baso % (Auto) Lymph # [place] # Eos # Baso # Seg Neutrophils % Seg Neutrophils # PT INR APTT Sodium 139 Potassium 4.5 D Chloride 105.0 Carbon Dioxide 22 Anion Gap 17 BUN 6 L Creatinine 0.6 L Estimated GFR > 60 BUN/Creatinine Ratio 10 Glucose 136 H Calcium 8.6 Troponin T Blood Type Antibody Screen Crossmatch Medications & Allergies - Medications Allergies/Adverse Reactions: Allergies ceftriaxone [From Rocephin] Allergy (Verified 11/02/18 21:51) Anaphylaxis ciprofloxacin [From Cipro] Allergy (Verified 11/02/18 21:50) Anaphylaxis divalproex sodium [From Depakote] Allergy (Verified 11/02/18 21:51) Anaphylaxis ketorolac [From Toradol] Allergy (Verified 11/02/18 21:49) Hives levofloxacin [From Levaquin] Allergy (Verified 11/02/18 21:50) Anaphylaxis metoclopramide [From Reglan] Allergy (Verified 11/02/18 21:49) Hives iv contrast Allergy (Uncoded 11/02/18 21:49) Hives Home Medications: Home Medications Medication Instructions Recorded Confirmed Last Taken Type Aspirin [Aspirin BABY CHEW TAB] 1 tab PO DAILY 11/03/18 11/03/18 Unknown History Citalopram [celeXA] 1 tab PO DAILY 11/03/18 11/03/18 Unknown History Pantoprazole [Protonix TAB] 1 tab PO DAILY 11/03/18 11/03/18 Unknown History Promethazine [Phenergan] 1 tab PO Q8HR PRN 11/03/18 11/03/18 Unknown History Warfarin [Coumadin] 20 mg PO DAILY 11/03/18 11/03/18 Unknown History lamoTRIgine [LaMICtal] 75 mg PO BID 11/03/18 11/03/18 Unknown History Active Medications: Generic Name Dose Route Start Last Admin Trade Name Freq PRN Reason Stop Dose Admin Aspirin 325 mg 11/04/18 10:00 11/04/18 10:29 Ecotrin PO Not Given QDAY ASHLEIGH Diphenhydramine HCl 50 mg 11/03/18 23:08 11/03/18 22:52 Benadryl PO 11/04/18 23:07 50 mg ONCE NR Administration Hydromorphone HCl 0.5 mg 11/03/18 22:21 11/04/18 14:13 Dilaudid IV 0.5 mg Q3H PRN Administration Pain , Severe (7-10) Sodium Chloride 1,000 mls @ 100 mls/hr 11/03/18 16:00 11/04/18 16:57 Nacl 0.9% 1000 Ml IV 100 mls/hr DIRECT ASHLEIGH Administration Lamotrigine 75 mg 11/03/18 22:00 11/04/18 10:29 Lamictal PO 75 mg BID ASHLEIGH Administration Morphine Sulfate 2 mg 11/03/18 12:22 11/04/18 10:30 Morphine IV 2 mg Q4H PRN Administration Pain, Moderate (4-6) Nitroglycerin 0.4 mg 11/03/18 03:10 11/03/18 20:36 Nitrostat SL 0.4 mg Q5M PRN Administration Chest Pain Ondansetron HCl 4 mg 11/03/18 15:00 11/04/18 10:30 Zofran IV 4 mg Q6H PRN Administration Nausea Sodium Chloride 10 ml 11/03/18 03:10 Sodium Chloride Flush Syringe 10 Ml IV PRN PRN LINE FLUSH
[2018-11-04] MEDS: PERCOCET 5/325 PO PRN (21:39)
[2018-11-04] MEDS: PHENERGAN PO PRN (21:39)
[2018-11-05] MEDS: NACL 0.9% 1000 ML 1,000 ML IV SCH ×3 (00:15→20:08)
--- NOTE | 2018-11-05 00:52 | Consultation ---
REFERRED BY: Dr. Maritza Baum. REASON FOR CONSULTATION: History of protein C and protein S deficiency and anemia. 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 She was on anticoagulation in 2006 and she was found to have protein C and S deficiency. She has been following, Dr. Lyndsey Hanna -- environmental aide and in 2016, the patient was changed to Eliquis when she had another thromboembolism event/stroke and since then, she has been on Coumadin. The INR fluctuates a lot. As per the patient last week, INR was 3 and even though she has been on 20 mg at admission, INR was low at 1. The patient is an ex-nurse. She has history of chest pain, hematemesis. In February of this year, the patient had abdominal surgery for what appears to be some form of obstructive issues/hernia issues. I have been asked to evaluate the patient for her history of protein C and protein S deficiency, GI bleeding, DVT and PE. At this time, no headache, no visual disturbances, no ear discharge. History of hematemesis present. Diagnosed chest pain, no shortness of breath. History of abdominal discomfort present. No diarrhea. PAST MEDICAL HISTORY: As above. PAST SURGICAL HISTORY: Hysterectomy, hernia surgery, small bowel follow-through and angioplasty, Port-A-Cath placement and gastrectomy. SOCIAL HISTORY: Ex-RN. FAMILY HISTORY: Noncontributory. ALLERGIES: To ROCEPHIN, CIPRO, DEPAKOTE, KETOROLAC, LEVAQUIN, IV CONTRAST. HOME MEDICATIONS: Include aspirin, warfarin 20 mg, Celexa, Protonix, Phenergan, Lamictal. PHYSICAL EXAMINATION: VITAL SIGNS: Temperature 98, pulse 96, respirations 20, BP 140/77. HEENT: Pallor present, no icterus. NECK: No neck lymph nodes. HEART: S1, S2. CHEST: Port present in chest. LUNGS: Clear to auscultation anteriorly. ABDOMEN: Soft. Scar of surgery seen. Tenderness present. Possible palpable mass in left lower quadrant. EXTREMITIES: No calf tenderness. NEUROLOGIC: Alert, awake, oriented. LABORATORY DATA: White cell 3.4, hemoglobin 8.7, MCV 93, platelet 209. INR at admission was 1.1. Potassium 3.3, creatinine 0.7, calcium 8.3. B12 of 740, folate 13. Serum iron 35, ferritin 155. RADIOLOGY: A V/Q scan was done. V/Q scan showed low probability for PE. ASSESSMENT AND PLAN: 1. History of hematemesis and history of gastrointestinal surgery. The patient is on Coumadin for history of pulmonary embolism, protein C and S deficiency. INR is fluctuating. The patient tried Eliquis in 2017. Had a thromboembolic phenomenon at that time. 3. Anemia, likely secondary to iron deficiency. 4. History of gastric surgery. The patient has received intravenous iron in the past. 5. Because of hemoptysis, anticoagulation was on hold. Once the GI team clears for anticoagulation, we can look into Lovenox. As a care home with somewhat fluctuation in Coumadin and the large dose of Coumadin, Lovenox twice a day at 1 mg/kg or once a day at 1.5 mg/kg is an option. The patient will follow up with Dr. Carballo as an outpatient. We will look into iron support. 6. The patient has a port placement. 7. History of bowel surgery and bowel discomfort. I will discuss with hospitalist. JOB# [id number] NM/NTS
[2018-11-05] MEDS: PHENERGAN PO PRN ×2 (05:37→16:53)
[2018-11-05] MEDS: PERCOCET 5/325 PO PRN (05:37)
[2018-11-05] MEDS: DILAUDID IV PRN ×5 (08:33→23:03)
[2018-11-05] MEDS ORDERED: FLUSH HEPARIN IV ONE (09:04)
[2018-11-05 09:20] LABS: Hematocrit 28.7 % (30.3-42.9); Hemoglobin 9.7 gm/dl (10.1-14.3); Mean Corpuscular HGB Conc 34 % (30-34); Mean Corpuscular Volume 92 fl (79-97); Platelet Count 189 K/mm3 (140-440); Red Blood Count 3.13 M/mm3 (3.65-5.03); Red Cell Distribution Width 14.1 % (13.2-15.2)
--- NOTE | 2018-11-05 10:17 | Progress Note ---
Assessment and Plan Assessment and plan: Hematemesis. GI hollowing. EGD likely Tuesday after Cardiac clearance. Hypercoagulable. Prot C an S def. Hold on A/C given bleeding. After endoscopy, resume anticoagulation with Lovenox twice a day if ok with GI. Heme recommends d/c home with BID lovenox. Chest pain. CT with no mention of PE. V/Q negative. Cardiology consulted Abd pain. CT A/P negative. Hx of CVA History Interval history: no new issues Hospitalist Physical - Constitutional Vitals: Temp Pulse Resp BP Pulse Ox 98.1 F 82 16 124/81 96 11/05/18 05:32 11/05/18 08:27 11/05/18 08:33 11/05/18 08:27 11/05/18 08:27 General appearance: Present: no acute distress - EENT Eyes: Present: PERRL, EOM intact ENT: hearing intact, clear oral mucosa, dentition normal - Neck Neck: Present: supple, normal ROM - Respiratory Respiratory effort: normal Respiratory: bilateral: CTA - Cardiovascular Rhythm: regular Heart Sounds: Present: S1 & S2. Absent: gallop, rub - Extremities Extremities: no ischemia, No edema, Full ROM - Abdominal General gastrointestinal: soft, non-tender, non-distended, normal bowel sounds - Integumentary Integumentary: Present: clear, warm, dry - Neurologic Neurologic: CNII-XII intact, moves all extremities Results - Labs CBC & Chem 7: 11/05/18 09:00 11/04/18 04:42 Labs: Laboratory Last Values WBC 5.2 K/mm3 (4.5-11.0) 11/05/18 09:00 RBC 3.13 M/mm3 (3.65-5.03) L 11/05/18 09:00 Hgb 9.7 gm/dl (10.1-14.3) L 11/05/18 09:00 Hct 28.7 % (30.3-42.9) L 11/05/18 09:00 MCV 92 fl (79-97) 11/05/18 09:00 MCH 31 pg (28-32) 11/05/18 09:00 MCHC 34 % (30-34) 11/05/18 09:00 RDW 14.1 % (13.2-15.2) 11/05/18 09:00 Plt Count 189 K/mm3 (140-440) 11/05/18 09:00 Lymph % (Auto) 12.6 % (13.4-35.0) L 11/04/18 04:42 [place] % (Auto) 2.8 % (0.0-7.3) 11/04/18 04:42 Eos % (Auto) 0.1 % (0.0-4.3) 11/04/18 04:42 Baso % (Auto) 0.4 % (0.0-1.8) 11/04/18 04:42 Lymph # 0.4 K/mm3 (1.2-5.4) L 11/04/18 04:42 [place] # 0.1 K/mm3 (0.0-0.8) 11/04/18 04:42 Eos # 0.0 K/mm3 (0.0-0.4) 11/04/18 04:42 Baso # 0.0 K/mm3 (0.0-0.1) 11/04/18 04:42 Seg Neutrophils % 84.1 % (40.0-70.0) H 11/04/18 04:42 Seg Neutrophils # 2.5 K/mm3 (1.8-7.7) 11/04/18 04:42 PT 14.4 Sec. (12.2-14.9) 11/03/18 17:40 INR 1.15 (0.87-1.13) H 11/03/18 17:40 APTT 222.7 Sec. (24.2-36.6) H* 11/03/18 17:40 2395 ng/mlDDU (0-234) H 11/03/18 00:20 Sodium 139 mmol/L (137-145) 11/04/18 04:42 Potassium 4.5 mmol/L (3.6-5.0) D 11/04/18 04:42 Chloride 105.0 mmol/L (98-107) 11/04/18 04:42 Carbon Dioxide 22 mmol/L (22-30) 11/04/18 04:42 17 mmol/L 11/04/18 04:42 BUN 6 mg/dL (7-17) L 11/04/18 04:42 0.6 mg/dL (0.7-1.2) L 11/04/18 04:42 Estimated GFR > 60 ml/min 11/04/18 04:42 10 % 11/04/18 04:42 Glucose 136 mg/dL (65-100) H 11/04/18 04:42 Calcium 8.6 mg/dL (8.4-10.2) 11/04/18 04:42 Iron 35 ug/dL (37-170) L 11/03/18 Unknown TIBC 246 mcg/dL (250-450) L 11/03/18 Unknown 155.3 ng/mL (13.0-400.0) 11/03/18 Unknown 0.20 mg/dL (0.1-1.2) 11/02/18 23:35 AST 17 units/L (5-40) 11/02/18 23:35 ALT 11 units/L (7-56) 11/02/18 23:35 54 units/L (35-129) 11/02/18 23:35 < 0.010 ng/mL (0.00-0.029) 11/03/18 Unknown 6.4 g/dL (6.3-8.2) 11/02/18 23:35 3.8 g/dL (3.9-5) L 11/02/18 23:35 1.5 % 11/02/18 23:35 Triglycerides 76 mg/dL (2-149) 11/03/18 Unknown Cholesterol 117 mg/dL (50-199) 11/03/18 Unknown 62 mg/dL (50-130) 11/03/18 Unknown 54 mg/dL (40-59) 11/03/18 Unknown 2.16 % 11/03/18 Unknown Vitamin B12 740.3 pg/mL (211-911) 11/03/18 Unknown 13.36 ng/mL (7.3-26.0) 11/03/18 Unknown Straw (Yellow) 11/02/18 23:28 Clear (Clear) 11/02/18 23:28 6.0 (5.0-7.0) 11/02/18 23:28 Ur Specific [place] 1.006 (1.003-1.030) 11/02/18 23:28 <15 mg/dl mg/dL (Negative) 11/02/18 23:28 Neg mg/dL (Negative) 11/02/18 23:28 Neg mg/dL (Negative) 11/02/18 23:28 Neg (Negative) 11/02/18 23:28 Neg (Negative) 11/02/18 23:28 Neg (Negative) 11/02/18 23:28 < 2.0 mg/dL (<2.0) 11/02/18 23:28 Ur Leukocyte Esterase Neg (Negative) 11/02/18 23:28 1.0 /HPF (0.0-6.0) 11/02/18 23:28 2.0 /HPF (0.0-6.0) 11/02/18 23:28 U Epithel Cells (Auto) 5.0 /HPF (0-13.0) 11/02/18 23:28 Presumptive negative 11/02/18 23:28 Presumptive negative 11/02/18 23:28 Ur Barbiturates Screen Presumptive negative 11/02/18 23:28 Ur Phencyclidine Scrn Presumptive negative 11/02/18 23:28 Ur Amphetamines Screen Presumptive negative 11/02/18 23:28 U Benzodiazepines Scrn Presumptive negative 11/02/18 23:28 Presumptive negative 11/02/18 23:28 U Marijuana (THC) Screen Presumptive negative 11/02/18 23:28 Disclamer 11/02/18 23:28 Blood Type O POSITIVE 11/03/18 17:40 Antibody Screen Negative 11/03/18 17:40 Crossmatch See Detail 11/03/18 17:40 Active Medications - Current Medications Current Medications: Generic Name Dose Route Start Last Admin Trade Name Freq PRN Reason Stop Dose Admin Aspirin 325 mg 11/04/18 10:00 11/04/18 10:29 Ecotrin PO Not Given QDAY ASHLEIGH Hydromorphone HCl 0.5 mg 11/03/18 22:21 11/05/18 08:33 Dilaudid IV 0.5 mg Q3H PRN Administration Pain , Severe (7-10) Sodium Chloride 1,000 mls @ 100 mls/hr 11/03/18 16:00 11/05/18 00:15 Nacl 0.9% 1000 Ml IV 100 mls/hr DIRECT ASHLEIGH Administration Lamotrigine 75 mg 11/03/18 22:00 11/04/18 21:40 Lamictal PO 75 mg BID ASHLEIGH Administration Morphine Sulfate 2 mg 11/03/18 12:22 11/04/18 18:39 Morphine IV 2 mg Q4H PRN Administration Pain, Moderate (4-6) Nitroglycerin 0.4 mg 11/03/18 03:10 11/03/18 20:36 Nitrostat SL 0.4 mg Q5M PRN Administration Chest Pain Ondansetron HCl 4 mg 11/03/18 15:00 11/04/18 18:39 Zofran IV 4 mg Q6H PRN Administration Nausea Oxycodone/Acetaminophen 1 tab 11/04/18 21:30 11/05/18 05:37 Percocet 5/325 PO 1 tab Q4H PRN Administration Pain, Moderate (4-6) Promethazine HCl 25 mg 11/04/18 21:31 11/05/18 05:37 Phenergan PO 25 mg Q6H PRN Administration Nausea And Vomiting Sodium Chloride 10 ml 11/03/18 03:10 Sodium Chloride Flush Syringe 10 Ml IV PRN PRN LINE FLUSH Nutrition/Malnutrition Assess - Dietary Evaluation Nutrition/Malnutrition Findings: Nutrition Notes Start: 11/03/18 11:54 Freq: Status: Active Protocol: Document 11/03/18 11:56 CW (Rec: 11/03/18 13:17 CW [id number]) Co-Sign 11/03/18 11:56 LP Nutrition Notes Need for Assessment generated from: MST Initial or Follow up Assessment Current Diagnosis Malnutrition Other Pertinent Diagnosis Upper GI Bleed; Chest Pain; gastrectomy Current Diet NPO Labs/Tests reviewed Pertinent Medications warfarin; zofran; phenergan Height 5 ft 4 in Weight 48.7 kg Usual Body Weight 230 kg [place] Body Weight (kg) 54.54 BMI 18.4 Intake Prior to Admission Excellent Weight change and time frame pt. states 130 lbs wt loss since february (9 months) (43% wt. loss) Weight Status Underweight Subjective/Other Information Pt. states she does not have an appetite and is following NPO diet order. Pt. states vomiting began yesterday. PMHx of TPN; Waiting GI consult Burn Absent Trauma Absent GI Symptoms Vomiting Food Allergy No Current % PO Negligible Minimum of two criteria Yes Interpretation of Weight Loss (severe) >10% in 6 months Body Fat Depletion Mild depletion (non-severe) #1 Nutrition Diagnosis Malnutrition Etiology R/T gastrectomy As Evidenced by Signs and Symptoms BMI of 18.4, 43% weight loss since in 9 mo, depletion of body fat Is patient on ventilator? No Is Patient Ambulatory and/or Out of Bed Yes REE-([place]-St. Jeor-ambulatory/OOB) [ 1484.600 [id number]] Kcal/Kg value to use for calculation 35 Approximate Energy Requirements Using 1705 kcal/Kg Calculation Used for Recommendations Kcal/kg Additional Notes Protein Needs: 58 - 73 g (1.2 - 1.5 g/ kg) Fluid Needs: 1 mL/ kcal Nutrition Intervention Change Diet Order: advance diet as feasible Goal #1 diet advancement Anticipated Discharge Needs: unable to determine at this time Follow-Up By: 11/06/18 Additional Comments Follow up bib diet advancement / intake
[2018-11-05] MEDS: ECOTRIN PO SCH ×2 (10:19→10:34)
[2018-11-05] MEDS: LaMICtal PO SCH ×2 (10:19→21:37)
[2018-11-05] MEDS: MORPHINE IV PRN ×2 (10:22→14:39)
--- NOTE | 2018-11-05 13:51 | Cat Scan Report ---
CT BRAIN: 11/05/2018 INDICATION / CLINICAL INFORMATION: headache /10 at left temporal area.. COMPARISON: None available. FINDINGS: BRAIN/INTRACRANIAL STRUCTURES: Unenhanced CT images of the brain demonstrate no evidence of acute int racranial abnormality. Ventricles and sulci are at the upper limits of normal in size and shape for a patient of this age. There is no evidence of ischemic injury, hemorrhage, or mass. There are no abnormal extra-axial fluid collections. EXTRACRANIAL STRUCTURES: Unremarkable. IMPRESSION: No acute abnormality. All CT scans at this location are performed using dose reduction to ALARA by means of automated expos ure control. Signer Name: Ed Tariq MD Signed: 11/05/2018 1:47 PM Workstation Name: [id number]
--- NOTE | 2018-11-05 14:17 | Consultation ---
History of Present Illness Consult date: 11/05/18 Consult reason: pre op evaluation History of present illness: Impression Acceptable risk for GI endoscopic eval Her symptoms are not cardiac right now Her ECG normal, trop negative x [address] negative for cardiac pathology she has h/o PTCA no stent for acute coronary thrombosis related to chronic hypercoag state (Protein C, S deficiency) h/o DVT/PE, compartment syndrome Plan Watchful waiting from cardiac perspective Ok to proceed with GI evaluation without further CV testing Past History Past Medical History: other (protein c&S deficiency) Past Surgical History: hysterectomy, hernia repair, Other (small frederic pull through, angioplasty, Port a cath insertion, gastrectomy) Social history: no significant social history Family history: no significant family history Medications and Allergies Allergies Allergy/AdvReac Type Severity Reaction Status Date / Time ceftriaxone [From Rocephin] Allergy Anaphylaxis Verified 11/02/18 21:51 ciprofloxacin [From Cipro] Allergy Anaphylaxis Verified 11/02/18 21:50 divalproex sodium Allergy Anaphylaxis Verified 11/02/18 21:51 [From Depakote] ketorolac [From Toradol] Allergy Hives Verified 11/02/18 21:49 levofloxacin [From Levaquin] Allergy Anaphylaxis Verified 11/02/18 21:50 metoclopramide [From Reglan] Allergy Hives Verified 11/02/18 21:49 iv contrast Allergy Hives Uncoded 11/02/18 21:49 Home Medications Medication Instructions Recorded Confirmed Last Taken Type Aspirin [Aspirin BABY CHEW TAB] 1 tab PO DAILY 11/03/18 11/03/18 Unknown History Citalopram [celeXA] 1 tab PO DAILY 11/03/18 11/03/18 Unknown History Pantoprazole [Protonix TAB] 1 tab PO DAILY 11/03/18 11/03/18 Unknown History Promethazine [Phenergan] 1 tab PO Q8HR PRN 11/03/18 11/03/18 Unknown History Warfarin [Coumadin] 20 mg PO DAILY 11/03/18 11/03/18 Unknown History lamoTRIgine [LaMICtal] 75 mg PO BID 11/03/18 11/03/18 Unknown History Active Meds: Active Medications Aspirin (Ecotrin) 325 mg PO QDAY ASHLEIGH Last Admin: 11/05/18 10:34 Dose: Not Given Documented by: Hydromorphone HCl (Dilaudid) 0.5 mg IV Q3H PRN PRN Reason: Pain , Severe (7-10) Last Admin: 11/05/18 12:35 Dose: 0.5 mg Documented by: Sodium Chloride (Nacl 0.9% 1000 Ml) 1,000 mls @ 100 mls/hr IV DIRECT ASHLEIGH Last Admin: 11/05/18 10:31 Dose: 100 mls/hr Documented by: Lamotrigine (Lamictal) 75 mg PO BID ASHLEIGH Last Admin: 11/05/18 10:19 Dose: 75 mg Documented by: Morphine Sulfate (Morphine) 2 mg IV Q4H PRN PRN Reason: Pain, Moderate (4-6) Last Admin: 11/05/18 10:22 Dose: 2 mg Documented by: Nitroglycerin (Nitrostat) 0.4 mg SL Q5M PRN PRN Reason: Chest Pain Last Admin: 11/03/18 20:36 Dose: 0.4 mg Documented by: Ondansetron HCl (Zofran) 4 mg IV Q6H PRN PRN Reason: Nausea Last Admin: 11/04/18 18:39 Dose: 4 mg Documented by: Oxycodone/Acetaminophen (Percocet 5/325) 1 tab PO Q4H PRN PRN Reason: Pain, Moderate (4-6) Last Admin: 11/05/18 05:37 Dose: 1 tab Documented by: Promethazine HCl (Phenergan) 25 mg PO Q6H PRN PRN Reason: Nausea And Vomiting Last Admin: 11/05/18 05:37 Dose: 25 mg Documented by: Sodium Chloride (Sodium Chloride Flush Syringe 10 Ml) 10 ml IV PRN PRN PRN Reason: LINE FLUSH Physical Examination Vital Signs Temp Pulse Resp BP Pulse Ox 99.3 F 126 H 22 119/85 100 11/02/18 21:43 11/02/18 21:43 11/02/18 21:43 11/02/18 21:43 11/02/18 21:43 General appearance: no acute distress HEENT: Positive: PERRL Neck: Positive: neck supple Cardiac: Positive: Reg Rate and Rhythm, S1/S2 Lungs: Positive: Normal Exam Neuro: Positive: Grossly Intact Abdomen: Positive: Soft Extremities: Absent: edema Results 11/05/18 09:00 11/04/18 04:42 CBC 11/05/18 Range/Units 09:00 WBC 5.2 (4.5-11.0) K/mm3 RBC 3.13 L (3.65-5.03) M/mm3 Hgb 9.7 L (10.1-14.3) gm/dl Hct 28.7 L (30.3-42.9) % Plt Count 189 (140-440) K/mm3 EKG interpretations - Telemetry EKG Rhythm: Sinus Rhythm
--- NOTE | 2018-11-05 14:42 | Progress Note ---
Assessment and Plan 1. Hematemesis - Pt hemodynamically stable, and Hgb good. Pt states she has had this ongoing, and is s/p EGD 4 months ago with treatment of some type of ulcer. Also, she is s/p gastrectomy in ~ 2017, but the indication is unknown. - she may well have an anastomotic ulcer, and warrants EGD. - proceed with EGD since Cardiac clearance negative - CT report noted, and unremarkable. - meantime, monitor H/H and transfuse as needed 2. Protein C and S deficiency - per Hematology. Subjective Date of service: 11/05/18 Interval history: Pt reports throbbing L sided headache. Last had bloody emesis yesterday. No abd pain, N/V. Last BM was brown yesterday. Objective - Constitutional Vitals: Vital Signs - 12hr 11/05/18 11/05/18 11/05/18 05:32 08:27 08:33 Temperature 98.1 F Pulse Rate 83 82 Respiratory 20 16 16 Rate Blood Pressure 113/71 Blood Pressure 124/81 [Left] O2 Sat by Pulse 99 96 Oximetry 11/05/18 11/05/18 11/05/18 09:03 10:00 10:22 Temperature Pulse Rate 79 Respiratory 15 16 Rate Blood Pressure Blood Pressure [Left] O2 Sat by Pulse Oximetry 11/05/18 11/05/18 11/05/18 10:52 12:35 13:05 Temperature Pulse Rate Respiratory 16 16 14 Rate Blood Pressure Blood Pressure [Left] O2 Sat by Pulse Oximetry 11/05/18 11/05/18 13:07 14:32 Temperature Pulse Rate 104 H 93 H Respiratory 18 Rate Blood Pressure 135/85 Blood Pressure 144/89 [Left] O2 Sat by Pulse 97 Oximetry General appearance: Present: mild distress - EENT Eyes: PERRL, EOM intact ENT: hearing intact - Respiratory Respiratory effort: normal - Gastrointestinal General gastrointestinal: Present: soft, non-tender - Labs CBC & Chem 7: 11/05/18 09:00 11/04/18 04:42 Labs: Abnormal lab results 11/05/18 Range/Units 09:00 RBC 3.13 L (3.65-5.03) M/mm3 Hgb 9.7 L (10.1-14.3) gm/dl Hct 28.7 L (30.3-42.9) % Medications & Allergies - Medications Allergies/Adverse Reactions: Allergies ceftriaxone [From Rocephin] Allergy (Verified 11/02/18 21:51) Anaphylaxis ciprofloxacin [From Cipro] Allergy (Verified 11/02/18 21:50) Anaphylaxis divalproex sodium [From Depakote] Allergy (Verified 11/02/18 21:51) Anaphylaxis ketorolac [From Toradol] Allergy (Verified 11/02/18 21:49) Hives levofloxacin [From Levaquin] Allergy (Verified 11/02/18 21:50) Anaphylaxis metoclopramide [From Reglan] Allergy (Verified 11/02/18 21:49) Hives iv contrast Allergy (Uncoded 11/02/18 21:49) Hives Home Medications: Home Medications Medication Instructions Recorded Confirmed Last Taken Type Aspirin [Aspirin BABY CHEW TAB] 1 tab PO DAILY 11/03/18 11/03/18 Unknown History Citalopram [celeXA] 1 tab PO DAILY 11/03/18 11/03/18 Unknown History Pantoprazole [Protonix TAB] 1 tab PO DAILY 11/03/18 11/03/18 Unknown History Promethazine [Phenergan] 1 tab PO Q8HR PRN 11/03/18 11/03/18 Unknown History Warfarin [Coumadin] 20 mg PO DAILY 11/03/18 11/03/18 Unknown History lamoTRIgine [LaMICtal] 75 mg PO BID 11/03/18 11/03/18 Unknown History Active Medications: Generic Name Dose Route Start Last Admin Trade Name Freq PRN Reason Stop Dose Admin Aspirin 325 mg 11/04/18 10:00 11/05/18 10:34 Ecotrin PO Not Given QDAY ASHLEIGH Hydromorphone HCl 0.5 mg 11/03/18 22:21 11/05/18 12:35 Dilaudid IV 0.5 mg Q3H PRN Administration Pain , Severe (7-10) Sodium Chloride 1,000 mls @ 100 mls/hr 11/03/18 16:00 11/05/18 10:31 Nacl 0.9% 1000 Ml IV 100 mls/hr DIRECT ASHLEIGH Administration Lamotrigine 75 mg 11/03/18 22:00 11/05/18 10:19 Lamictal PO 75 mg BID ASHLEIGH Administration Morphine Sulfate 2 mg 11/03/18 12:22 11/05/18 10:22 Morphine IV 2 mg Q4H PRN Administration Pain, Moderate (4-6) Nitroglycerin 0.4 mg 11/03/18 03:10 11/03/18 20:36 Nitrostat SL 0.4 mg Q5M PRN Administration Chest Pain Ondansetron HCl 4 mg 11/03/18 15:00 11/04/18 18:39 Zofran IV 4 mg Q6H PRN Administration Nausea Oxycodone/Acetaminophen 1 tab 11/04/18 21:30 11/05/18 05:37 Percocet 5/325 PO 1 tab Q4H PRN Administration Pain, Moderate (4-6) Promethazine HCl 25 mg 11/04/18 21:31 11/05/18 05:37 Phenergan PO 25 mg Q6H PRN Administration Nausea And Vomiting Sodium Chloride 10 ml 11/03/18 03:10 Sodium Chloride Flush Syringe 10 Ml IV PRN PRN LINE FLUSH
[2018-11-05] MEDS: ZOFRAN IV PRN (23:04)
[2018-11-06] MEDS: DILAUDID IV PRN ×4 (04:33→20:51)
[2018-11-06] MEDS: NACL 0.9% 1000 ML 1,000 ML IV SCH ×2 (04:34→14:33)
--- NOTE | 2018-11-06 07:39 | Hem/Onc Progress Note ---
Assessment and Plan 1. History of hematemesis and history of gastrointestinal surgery. The patient is on Coumadin for history of pulmonary embolism, protein C and S deficiency. INR is fluctuating. The patient tried Eliquis in 2017. Had a thromboembolic phenomenon at that time. 3. Anemia, likely secondary to iron deficiency. 4. History of gastric surgery. The patient has received intravenous iron in the past. 5. Because of hemoptysis, anticoagulation was on hold. Once the GI team clears for anticoagulation, we can look into Lovenox. As a assisted with somewhat fluctuation in Coumadin and the large dose of Coumadin, Lovenox twice a day at 1 mg/kg or once a day at 1.5 mg/kg is an option. The patient will follow up with Dr. Carballo as an outpatient. We will look into iron support. 6. The patient has a port placement. 7. History of bowel surgery and bowel discomfort. IV iron CT chest and CT abdo - done d/w dr Montoya in past if no bleeding - I prefer Lovenox sq instead of coumadin no PE at this time due EGD - Patient Problems (1) Protein S deficiency Current Visit: Yes Status: Chronic (2) Pulmonary emboli Current Visit: Yes Status: Acute Qualifiers: Chronicity: chronic (3) Anemia Current Visit: Yes Status: Acute Qualifiers: Anemia type: iron deficiency Subjective Date of service: 11/06/18 Principal diagnosis: anemia - h/o dvt Interval history: last hemetemesis yesterday am due egd Objective - Exam Narrative Exam: Pain - none General appearance - breathing better Performance status limited self care Eyes - no icterus, pallor + ENT - no bleeding LNs cervical not palpable Neck - no LN Respiratory Normal Breath sounds - CTA CVS S1 S2 + Extremities no edema General GI Soft Rectal deferred female - deferred Skin warm Musculoskeletal moving extremitites Neurologically awake - oriented - Constitutional Vitals: Last Vital Signs Temp 98.7 F 11/06/18 04:54 Pulse 84 11/06/18 04:06 Resp 16 11/06/18 04:06 BP 123/75 11/06/18 04:06 Pulse Ox 98 11/06/18 04:06 - Labs Lab Results: Laboratory Results - last 24 hr 11/05/18 09:00 WBC 5.2 RBC 3.13 L Hgb 9.7 L Hct 28.7 L MCV 92 MCH 31 MCHC 34 RDW 14.1 Plt Count 189 Medications & Allergies - Medications Allergies/Adverse Reactions: Allergies ceftriaxone [From Rocephin] Allergy (Verified 11/02/18 21:51) Anaphylaxis ciprofloxacin [From Cipro] Allergy (Verified 11/02/18 21:50) Anaphylaxis divalproex sodium [From Depakote] Allergy (Verified 11/02/18 21:51) Anaphylaxis ketorolac [From Toradol] Allergy (Verified 11/02/18 21:49) Hives levofloxacin [From Levaquin] Allergy (Verified 11/02/18 21:50) Anaphylaxis metoclopramide [From Reglan] Allergy (Verified 11/02/18 21:49) Hives iv contrast Allergy (Uncoded 11/02/18 21:49) Hives Home Medications: Home Medications Medication Instructions Recorded Confirmed Last Taken Type Aspirin [Aspirin BABY CHEW TAB] 1 tab PO DAILY 11/03/18 11/03/18 Unknown History Citalopram [celeXA] 1 tab PO DAILY 11/03/18 11/03/18 Unknown History Pantoprazole [Protonix TAB] 1 tab PO DAILY 11/03/18 11/03/18 Unknown History Promethazine [Phenergan] 1 tab PO Q8HR PRN 11/03/18 11/03/18 Unknown History Warfarin [Coumadin] 20 mg PO DAILY 11/03/18 11/03/18 Unknown History lamoTRIgine [LaMICtal] 75 mg PO BID 11/03/18 11/03/18 Unknown History Active Medications: Generic Name Dose Route Start Last Admin Trade Name Freq PRN Reason Stop Dose Admin Aspirin 325 mg 11/04/18 10:00 11/05/18 10:34 Ecotrin PO Not Given QDAY ASHLEIGH Hydromorphone HCl 0.5 mg 11/03/18 22:21 11/06/18 04:33 Dilaudid IV 0.5 mg Q3H PRN Administration Pain , Severe (7-10) Sodium Chloride 1,000 mls @ 100 mls/hr 11/03/18 16:00 11/06/18 04:34 Nacl 0.9% 1000 Ml IV 100 mls/hr DIRECT ASHLEIGH Administration Lamotrigine 75 mg 11/03/18 22:00 11/05/18 21:37 Lamictal PO 75 mg BID ASHLEIGH Administration Morphine Sulfate 2 mg 11/03/18 12:22 11/05/18 14:39 Morphine IV 2 mg Q4H PRN Administration Pain, Moderate (4-6) Nitroglycerin 0.4 mg 11/03/18 03:10 11/03/18 20:36 Nitrostat SL 0.4 mg Q5M PRN Administration Chest Pain Ondansetron HCl 4 mg 11/03/18 15:00 11/05/18 23:04 Zofran IV 4 mg Q6H PRN Administration Nausea Oxycodone/Acetaminophen 1 tab 11/04/18 21:30 11/05/18 05:37 Percocet 5/325 PO 1 tab Q4H PRN Administration Pain, Moderate (4-6) Promethazine HCl 25 mg 11/04/18 21:31 11/05/18 16:53 Phenergan PO 25 mg Q6H PRN Administration Nausea And Vomiting Sodium Chloride 10 ml 11/03/18 03:10 Sodium Chloride Flush Syringe 10 Ml IV PRN PRN LINE FLUSH
[2018-11-06 08:58] LABS: Basophils % (Auto) TNR % (0.0-1.8); Eosinophils # (Auto) TNR K/mm3 (0.0-0.4); Eosinophils % (Auto) TNR % (0.0-4.3); Hematocrit TNR % (30.3-42.9); Hemoglobin TNR gm/dl (10.1-14.3); Lymphocytes # (Auto) TNR K/mm3 (1.2-5.4); Lymphocytes % (Auto) TNR % (13.4-35.0); Mean Corpuscular HGB Conc TNR % (30-34); Mean Corpuscular Volume TNR fl (79-97); Mean Platelet Volume TNR fl (6-12); Monocytes # (Auto) TNR K/mm3 (0.0-0.8); Monocytes % (Auto) TNR % (0.0-7.3); Platelet Count TNR K/mm3 (140-440); Red Blood Count TNR M/mm3 (3.65-5.03); Red Cell Distribution Width TNR % (13.2-15.2)
[2018-11-06 08:59] LABS: Basophils # (Auto) TNR K/mm3 (0.0-0.1)
[2018-11-06] MEDS: ECOTRIN PO SCH (09:22)
[2018-11-06 09:23] LABS: Albumin 3.7 g/dL (3.9-5); BUN/Creatinine Ratio 6; Blood Urea Nitrogen 4 mg/dL (7-17); Calcium 8.2 mg/dL (8.4-10.2); Hemolysis Index 120
[2018-11-06] MEDS: MORPHINE IV PRN ×3 (09:26→22:49)
[2018-11-06] MEDS: ZOFRAN IV PRN ×2 (09:26→18:41)
[2018-11-06 09:43] LABS: Alanine Aminotransferase 13 units/L (7-56)
[2018-11-06 10:12] LABS: Basophils % (Auto) 0.9 % (0.0-1.8); Eosinophils # (Auto) 0.1 K/mm3 (0.0-0.4); Eosinophils % (Auto) 1.5 % (0.0-4.3); Hematocrit 29.9 % (30.3-42.9); Hemoglobin 10.1 gm/dl (10.1-14.3); Lymphocytes # (Auto) 1.4 K/mm3 (1.2-5.4); Lymphocytes % (Auto) 28.8 % (13.4-35.0); Mean Corpuscular HGB Conc 34 % (30-34); Mean Corpuscular Volume 92 fl (79-97); Monocytes # (Auto) 0.3 K/mm3 (0.0-0.8); Monocytes % (Auto) 5.9 % (0.0-7.3); Platelet Count 169 K/mm3 (140-440); Red Blood Count 3.26 M/mm3 (3.65-5.03); Red Cell Distribution Width 14.4 % (13.2-15.2)
[2018-11-06 10:55] LABS: INR 0.98 (0.87-1.13)
[2018-11-06 10:56] LABS: Partial Thromboplastin Time 20.4 Sec. (24.2-36.6)
--- NOTE | 2018-11-06 13:26 | Progress Note ---
Assessment and Plan Hematemesis Pre-op cardiac risk assessment Hx of pulmonary embolism Hx of protein C and S deficiency on warfarin as an outpatient Anemia s/p transfusion of PRBCs Hx of gastric surgery Ok to proceed with GI endoscopy. Subjective Date of service: 11/06/18 Principal diagnosis: anemia - h/o dvt Interval history: Patient denies chest pain and shortness of breath. Awaits GI endoscopy. Objective Vital Signs Temp Pulse Resp BP Pulse Ox 11/06/18 12:36 98.6 F 95 H 18 142/91 98 11/06/18 10:00 105 H 11/06/18 09:27 105 H 137/85 97 11/06/18 09:26 17 11/06/18 08:52 99.3 F 108 H 18 124/70 94 11/06/18 04:54 98.7 F 11/06/18 04:06 84 16 123/75 98 11/05/18 23:46 100.0 F H 118 H 20 140/75 97 11/05/18 23:00 98 H 11/05/18 19:51 98.9 F 97 H 18 145/93 96 11/05/18 16:53 15 11/05/18 16:52 127/85 11/05/18 16:00 99 H 11/05/18 15:09 14 11/05/18 14:39 15 11/05/18 14:32 93 H 135/85 97 - Physical Examination General: No Apparent Distress HEENT: Positive: PERRL Neck: Positive: neck supple Cardiac: Positive: Reg Rate and Rhythm Lungs: Positive: Decreased Breath Sounds Neuro: Positive: Grossly Intact Abdomen: Positive: Soft Extremities: Absent: edema - Labs and Meds Cardiac Enzymes 11/06/18 Range/Units 08:30 AST 28 (5-40) units/L Coagulation 11/06/18 Range/Units 10:15 PT 12.7 (12.2-14.9) Sec. INR 0.98 (0.87-1.13) APTT 20.4 L (24.2-36.6) Sec. CBC 11/06/18 11/06/18 Range/Units 08:30 10:00 WBC TNR 5.0 RBC TNR 3.26 L Hgb TNR 10.1 Hct TNR 29.9 L Plt Count TNR 169 Lymph # TNR 1.4 [place] # TNR 0.3 Eos # TNR 0.1 Baso # TNR 0.0 Comprehensive Metabolic Panel 11/06/18 Range/Units 08:30 Sodium 141 (137-145) mmol/L Potassium 3.8 (3.6-5.0) mmol/L Chloride 102.7 (98-107) mmol/L Carbon Dioxide 24 (22-30) mmol/L BUN 4 L (7-17) mg/dL Creatinine 0.7 (0.7-1.2) mg/dL Glucose 74 (65-100) mg/dL Calcium 8.2 L (8.4-10.2) mg/dL AST 28 (5-40) units/L ALT 13 (7-56) units/L Alkaline Phosphatase 53 (35-129) units/L Total Protein 6.0 L (6.3-8.2) g/dL Albumin 3.7 L (3.9-5) g/dL
[2018-11-06] MEDS ORDERED: NACL 0.9% 1000 ML 1,000 ML IV SCH (15:00)
--- NOTE | 2018-11-06 15:22 | Anesthesia Day of Surgery ---
Anesthesia Day of Surgery - Day of Surgery Patient Examined: Yes Patient H&P Reviewed: Yes Patient is NPO: Yes Cardiac Clearance: Yes
--- NOTE | 2018-11-06 15:27 | Anesthesia Consultation ---
Anesthesia Consult and Med Hx Date of service: 11/06/18 - Airway Anesthetic Teeth Evaluation: Chipped ROM Head & Neck: Adequate Mental/Hyoid Distance: Adequate Mallampati Class: Class I Intubation Access Assessment: Good - Pre-Operative Health Status ASA Pre-Surgery Classification: ASA3 Proposed Anesthetic Plan: MAC - Pulmonary Hx Asthma: No COPD: No Hx Pneumonia: No - Cardiovascular System Hx Coronary Artery Disease: Yes - Central Nervous System CVA: Yes (Vocal cord paralysis; LLE weak) Hx Psychiatric Problems: No - Gastrointestinal Hx Ulcer: Yes (GI Bleed) - Endocrine Hx End Stage Renal Disease: No - Hematic Hx Anemia: Yes - Additional Comments Anesthesia Medical History Comments: Clotting d/o-protein S and C deficiency
[2018-11-06] MEDS ORDERED: SUBLIMAZE ONE (15:37)
[2018-11-06] MEDS ORDERED: DIPRIVAN 10 MG/ML IV ONE ×2 (15:37)
--- NOTE | 2018-11-06 15:55 | Post Operative Note ---
Pre-op diagnosis: Hematemesis Post-op diagnosis: other (Mild nonerosive esophagitis, Gastrojejunostomy with likely Alon-en-Y anatomy. No evidence of bleeding.) Findings: 1. Normal esophagus with mild nonerosive esophagitis in distal 2 cm. 2. Normal gastric remnant. 3. Normal gastrojejunostomy. 4. Normal jejunum, with what appears to be a likely Alon-en-Y anatomy. 5. No bleeding source or evidence of bleeding. Procedure: EGD Anesthesia: MAC Surgeon: SKYLER LAFLEUR Estimated blood loss: none Pathology: none Condition: stable (1. Empiric carafate bid. 2. NO contraindication to anticoagulation.)
--- NOTE | 2018-11-06 16:39 | Post Anesthesia Evaluation ---
- Post Anesthesia Evaluation Patient Participated: Yes Airway Patent: Yes Stable Respiratory Function: Yes Nausea/Vomiting: No Temp > 96.8F: Yes Pain Manageable: Yes Adequeate Hydration: Yes Anesthesia Complications: No Block Receding Appropriately: Not Applicable Patient on Ventilator: No
--- NOTE | 2018-11-06 16:50 | Operative Report ---
PROCEDURE: Upper endoscopy. PREOPERATIVE DIAGNOSIS: Hematemesis. POSTOPERATIVE DIAGNOSIS: Mild nonerosive esophagitis and gastrojejunostomy with Alon-en-Y anatomy, most likely post. SEDATION: MAC by Anesthesia. HISTORY: The patient is a 38-year-old woman with protein C and protein C deficiency, who states she is status post gastrectomy for unclear reasons. She states she has been having intermittent hematemesis, but no melena. Her hemoglobin has been stable at approximately 10. She did receive 1 unit of packed red blood cells. There has been no other evidence of bleeding. DESCRIPTION OF PROCEDURE: Indications, risks, and benefits were explained and consent was obtained. The patient was placed in left lateral decubitus position and sedated. Video upper endoscope was passed through the mouth and oropharynx into the jejunum. Scope was then gradually withdrawn with close inspection of mucosa. FINDINGS: 1. Normal appearing esophagus with sharp Z-line located at 40 cm. There was some mild nonerosive irritation in the distal 2 cm consistent with nonerosive esophagitis. 2. Normal appearing gastric pouch. 3. Normal gastrojejunal anastomosis with visible maile. 4. Visualized small bowel, deep endoscopy done, was normal appearing with no evidence of bleeding or ulceration or mass lesions. There was no stigmata of bleeding. No ulcers were identified. The patient tolerated the procedure well without immediate complication. IMPRESSION: 1. Mild nonerosive esophagitis. 2. Normal gastrojejunostomy. 3. Likely Alon-en-Y anatomy. 4. No evidence of bleeding source or blood. RECOMMENDATIONS: 1. Empiric Carafate b.i.d. 2. May initiate anticoagulation. 3. Would not pursue small amounts of hematemesis unless the patient develops evidence of significant bleeding with drop in hemoglobin, melena, alteration in BUN and creatinine ratio, etc. JOB# [id number] HRC/NTS
[2018-11-06] MEDS: LaMICtal PO SCH ×2 (17:26→22:49)
--- NOTE | 2018-11-06 17:40 | Progress Note ---
Assessment and Plan Assessment and plan: Hematemesis. GI hollowing. EGD likely Tuesday after Cardiac clearance. Hypercoagulable. Prot C an S def. Hold on A/C given bleeding. After endoscopy, resume anticoagulation with Lovenox twice a day if ok with GI. Heme recommends d/c home with BID lovenox. Chest pain. CT with no mention of PE. V/Q negative. Cardiology consulted Abd pain. CT A/P negative. Hx of CVA History Interval history: no new issues Hospitalist Physical - Constitutional Vitals: Temp Pulse Resp BP Pulse Ox 97.9 F 92 H 18 140/89 96 11/06/18 17:06 11/06/18 17:06 11/06/18 17:06 11/06/18 17:06 11/06/18 17:06 General appearance: Present: mild distress - EENT Eyes: Present: PERRL, EOM intact ENT: hearing intact, clear oral mucosa, dentition normal - Neck Neck: Present: supple, normal ROM - Respiratory Respiratory effort: normal Respiratory: bilateral: CTA - Cardiovascular Rhythm: regular Heart Sounds: Present: S1 & S2. Absent: gallop, rub - Extremities Extremities: no ischemia, No edema, Full ROM - Abdominal General gastrointestinal: soft, non-tender, non-distended, normal bowel sounds - Integumentary Integumentary: Present: clear, warm, dry - Neurologic Neurologic: CNII-XII intact, moves all extremities Results - Labs CBC & Chem 7: 11/06/18 10:00 11/06/18 08:30 Labs: Laboratory Last Values WBC 5.0 K/mm3 (4.5-11.0) 11/06/18 10:00 RBC 3.26 M/mm3 (3.65-5.03) L 11/06/18 10:00 Hgb 10.1 gm/dl (10.1-14.3) 11/06/18 10:00 Hct 29.9 % (30.3-42.9) L 11/06/18 10:00 MCV 92 fl (79-97) 11/06/18 10:00 MCH 31 pg (28-32) 11/06/18 10:00 MCHC 34 % (30-34) 11/06/18 10:00 RDW 14.4 % (13.2-15.2) 11/06/18 10:00 Plt Count 169 K/mm3 (140-440) 11/06/18 10:00 Lymph % (Auto) 28.8 % (13.4-35.0) 11/06/18 10:00 Esmeralda % (Auto) 5.9 % (0.0-7.3) 11/06/18 10:00 Eos % (Auto) 1.5 % (0.0-4.3) 11/06/18 10:00 Baso % (Auto) 0.9 % (0.0-1.8) 11/06/18 10:00 Lymph # 1.4 K/mm3 (1.2-5.4) 11/06/18 10:00 Esmeralda # 0.3 K/mm3 (0.0-0.8) 11/06/18 10:00 Eos # 0.1 K/mm3 (0.0-0.4) 11/06/18 10:00 Baso # 0.0 K/mm3 (0.0-0.1) 11/06/18 10:00 Add Manual Diff TNR 11/06/18 08:30 Seg Neutrophils % 62.9 % (40.0-70.0) 11/06/18 10:00 Seg Neutrophils # 3.2 K/mm3 (1.8-7.7) 11/06/18 10:00 PT 12.7 Sec. (12.2-14.9) 11/06/18 10:15 INR 0.98 (0.87-1.13) 11/06/18 10:15 APTT 20.4 Sec. (24.2-36.6) L 11/06/18 10:15 2395 ng/mlDDU (0-234) H 11/03/18 00:20 Sodium 141 mmol/L (137-145) 11/06/18 08:30 Potassium 3.8 mmol/L (3.6-5.0) 11/06/18 08:30 Chloride 102.7 mmol/L (98-107) 11/06/18 08:30 Carbon Dioxide 24 mmol/L (22-30) 11/06/18 08:30 18 mmol/L 11/06/18 08:30 BUN 4 mg/dL (7-17) L 11/06/18 08:30 0.7 mg/dL (0.7-1.2) 11/06/18 08:30 Estimated GFR > 60 ml/min 11/06/18 08:30 6 % 11/06/18 08:30 Glucose 74 mg/dL (65-100) 11/06/18 08:30 Calcium 8.2 mg/dL (8.4-10.2) L 11/06/18 08:30 Iron 35 ug/dL (37-170) L 11/03/18 Unknown TIBC 246 mcg/dL (250-450) L 11/03/18 Unknown 155.3 ng/mL (13.0-400.0) 11/03/18 Unknown 0.20 mg/dL (0.1-1.2) 11/06/18 08:30 AST 28 units/L (5-40) 11/06/18 08:30 ALT 13 units/L (7-56) 11/06/18 08:30 53 units/L (35-129) 11/06/18 08:30 < 0.010 ng/mL (0.00-0.029) 11/03/18 Unknown 6.0 g/dL (6.3-8.2) L 11/06/18 08:30 3.7 g/dL (3.9-5) L 11/06/18 08:30 1.6 % 11/06/18 08:30 Triglycerides 76 mg/dL (2-149) 11/03/18 Unknown Cholesterol 117 mg/dL (50-199) 11/03/18 Unknown 62 mg/dL (50-130) 11/03/18 Unknown 54 mg/dL (40-59) 11/03/18 Unknown 2.16 % 11/03/18 Unknown Vitamin B12 740.3 pg/mL (211-911) 11/03/18 Unknown 13.36 ng/mL (7.3-26.0) 11/03/18 Unknown Straw (Yellow) 11/02/18 23:28 Clear (Clear) 11/02/18 23:28 6.0 (5.0-7.0) 11/02/18 23:28 Ur Specific [place] 1.006 (1.003-1.030) 11/02/18 23:28 <15 mg/dl mg/dL (Negative) 11/02/18 23:28 Neg mg/dL (Negative) 11/02/18 23:28 Neg mg/dL (Negative) 11/02/18 23:28 Neg (Negative) 11/02/18 23:28 Neg (Negative) 11/02/18 23:28 Neg (Negative) 11/02/18 23:28 < 2.0 mg/dL (<2.0) 11/02/18 23:28 Ur Leukocyte Esterase Neg (Negative) 11/02/18 23:28 1.0 /HPF (0.0-6.0) 11/02/18 23:28 2.0 /HPF (0.0-6.0) 11/02/18 23:28 U Epithel Cells (Auto) 5.0 /HPF (0-13.0) 11/02/18 23:28 Presumptive negative 11/02/18 23:28 Presumptive negative 11/02/18 23:28 Ur Barbiturates Screen Presumptive negative 11/02/18 23:28 Ur Phencyclidine Scrn Presumptive negative 11/02/18 23:28 Ur Amphetamines Screen Presumptive negative 11/02/18 23:28 U Benzodiazepines Scrn Presumptive negative 11/02/18 23:28 Presumptive negative 11/02/18 23:28 U Marijuana (THC) Screen Presumptive negative 11/02/18 23:28 Disclamer 11/02/18 23:28 Blood Type O POSITIVE 11/03/18 17:40 Antibody Screen Negative 11/03/18 17:40 Crossmatch See Detail 11/03/18 17:40 Active Medications - Current Medications Current Medications: Generic Name Dose Route Start Last Admin Trade Name Freq PRN Reason Stop Dose Admin Aspirin 325 mg 11/04/18 10:00 11/06/18 09:22 Ecotrin PO Not Given QDAY ASHLEIGH Hydromorphone HCl 0.5 mg 11/03/18 22:21 11/06/18 17:26 Dilaudid IV 0.5 mg Q3H PRN Administration Pain , Severe (7-10) Sodium Chloride 1,000 mls @ 100 mls/hr 11/03/18 16:00 11/06/18 14:33 Nacl 0.9% 1000 Ml IV 100 mls/hr DIRECT ASHLEIGH Administration Sodium Chloride 1,000 mls @ 50 mls/hr 11/06/18 15:00 11/06/18 15:26 Nacl 0.9% 1000 Ml IV 50 mls/hr DIRECT ASHLEIGH Administration Lamotrigine 75 mg 11/03/18 22:00 11/06/18 17:26 Lamictal PO 75 mg BID ASHLEIGH Administration Morphine Sulfate 2 mg 11/03/18 12:22 11/06/18 14:32 Morphine IV 2 mg Q4H PRN Administration Pain, Moderate (4-6) Nitroglycerin 0.4 mg 11/03/18 03:10 11/03/18 20:36 Nitrostat SL 0.4 mg Q5M PRN Administration Chest Pain Ondansetron HCl 4 mg 11/03/18 15:00 11/06/18 09:26 Zofran IV 4 mg Q6H PRN Administration Nausea Oxycodone/Acetaminophen 1 tab 11/04/18 21:30 11/05/18 05:37 Percocet 5/325 PO 1 tab Q4H PRN Administration Pain, Moderate (4-6) Promethazine HCl 25 mg 11/04/18 21:31 11/05/18 16:53 Phenergan PO 25 mg Q6H PRN Administration Nausea And Vomiting Sodium Chloride 10 ml 11/03/18 03:10 Sodium Chloride Flush Syringe 10 Ml IV PRN PRN LINE FLUSH Nutrition/Malnutrition Assess - Dietary Evaluation Nutrition/Malnutrition Findings: Nutrition Notes Start: 11/03/18 11:54 Freq: Status: Active Protocol: Document 11/06/18 13:37 RM (Rec: 11/06/18 13:51 RM [email or web address]) Nutrition Notes Initial or Follow up Reassessment Current Diagnosis Malnutrition Other Pertinent Diagnosis Upper GI Bleed; Chest Pain; gastrectomy Current Diet NPO after midnight Labs/Tests Reviewed Pertinent Medications Zofran Height 5 ft 4 in Weight 51.9 kg [place] Body Weight (kg) 54.54 BMI 19.6 Subjective/Other Information Pt received regular diet -11/05/18. Pt NPO for EGD today. Pt stated that prior to NPO she ate a few ounces of her meals d/t gastrectomy but had bloody emesis afterwards. Stated that she did not receive an ONS. Pt also stated that she is very weak and needs assistance to ambulate. Burn Absent Trauma Absent Minimum of two criteria Yes Interpretation of Weight Loss (severe) >10% in 6 months Body Fat Depletion Mild depletion (non-severe) #1 Nutrition Diagnosis Malnutrition Diagnosis Progress(for reassessment Continues documentation) Is patient on ventilator? No Is Patient Ambulatory and/or Out of Bed No REE-([facility]-confined to bed) 1412.016 Calculation Used for Recommendations Kcal/kg Additional Notes Protein Needs: 62 - 78g (1.2 - 1.5g/kg) Fluid Needs: 1 mL/ kcal Nutrition Intervention Change Diet Order: Advance diet as medically able Add Supplement/Snack (indicate name/kcal Ensure Clear 1 daily once diet /protein ) advanced Provides kCal: 240 Provides Protein (gm) 8 Goal #1 Diet advancement Anticipated Discharge Needs: unable to determine at this time Follow-Up By: 11/08/18 Additional Comments Follow for diet advancement, wt
[2018-11-06] MEDS: LOVENOX SUB-Q SCH (20:50)
[2018-11-06] MEDS ORDERED: CARAFATE PO SCH (22:00)
[2018-11-07] MEDS: DILAUDID IV PRN ×2 (01:08→07:49)
[2018-11-07] MEDS: ZOFRAN IV PRN (01:49)
[2018-11-07] MEDS: NACL 0.9% 1000 ML 1,000 ML IV SCH (01:51)
[2018-11-07] MEDS: LOVENOX SUB-Q SCH (06:50)
--- NOTE | 2018-11-07 07:13 | Hem/Onc Progress Note ---
Assessment and Plan 1. History of hematemesis and history of gastrointestinal surgery. The patient is on Coumadin for history of pulmonary embolism, protein C and S deficiency. INR is fluctuating. The patient tried Eliquis in 2017. Had a thromboembolic phenomenon at that time. 3. Anemia, likely secondary to iron deficiency. 4. History of gastric surgery. The patient has received intravenous iron in the past. 5. Because of hemoptysis, anticoagulation was on hold. Once the GI team clears for anticoagulation, we can look into Lovenox. As a long-term with somewhat fluctuation in Coumadin and the large dose of Coumadin, Lovenox twice a day at 1 mg/kg or once a day at 1.5 mg/kg is an option. The patient will follow up with Dr. Carballo as an outpatient. We will look into iron support. 6. The patient has a port placement. 7. History of bowel surgery and bowel discomfort. IV iron CT chest and CT abdo - done d/w dr Montoya in past if no bleeding - I prefer Lovenox sq instead of coumadin no PE at this time s/p EGD Lovenox pt has apt to see dr Carballo next week pt has h/o cervical ca stage IV - 2009 h/o DVT 2000 h/o CVA 2016 - Patient Problems (1) Protein S deficiency Current Visit: Yes Status: Chronic (2) Pulmonary emboli Current Visit: Yes Status: Acute Qualifiers: Chronicity: chronic (3) Anemia Current Visit: Yes Status: Acute Qualifiers: Anemia type: iron deficiency Subjective Date of service: 11/07/18 Principal diagnosis: anemia - h/o GI bleed Interval history: s/p EGD Objective - Exam Narrative Exam: Pain - none General appearance - breathing better Performance status limited self care Eyes - no icterus, pallor + ENT - no bleeding LNs cervical not palpable Neck - no LN Respiratory Normal Breath sounds - CTA CVS S1 S2 + Extremities no edema General GI Soft Rectal deferred female - deferred Skin warm Musculoskeletal moving extremitites Neurologically awake - oriented - Constitutional Vitals: Last Vital Signs Temp 98.3 F 11/07/18 04:11 Pulse 97 H 11/07/18 04:11 Resp 16 11/07/18 04:11 BP 123/77 11/07/18 04:11 Pulse Ox 97 11/07/18 04:11 - Labs Lab Results: Laboratory Results - last 24 hr 11/06/18 11/06/18 11/06/18 08:30 08:30 10:00 WBC TNR 5.0 RBC TNR 3.26 L Hgb TNR 10.1 Hct TNR 29.9 L MCV TNR 92 MCH TNR 31 MCHC TNR 34 RDW TNR 14.4 Plt Count TNR 169 Lymph % (Auto) TNR 28.8 [place] % (Auto) TNR 5.9 Eos % (Auto) TNR 1.5 Baso % (Auto) TNR 0.9 Lymph # TNR 1.4 [place] # TNR 0.3 Eos # TNR 0.1 Baso # TNR 0.0 Add Manual Diff TNR Seg Neutrophils % TNR 62.9 Seg Neutrophils # TNR 3.2 PT INR APTT Sodium 141 Potassium 3.8 Chloride 102.7 Carbon Dioxide 24 Anion Gap 18 BUN 4 L Creatinine 0.7 Estimated GFR > 60 BUN/Creatinine Ratio 6 Glucose 74 Calcium 8.2 L Total Bilirubin 0.20 AST 28 ALT 13 Alkaline Phosphatase 53 Total Protein 6.0 L Albumin 3.7 L Albumin/Globulin Ratio 1.6 11/06/18 10:15 WBC RBC Hgb Hct MCV MCH MCHC RDW Plt Count Lymph % (Auto) [place] % (Auto) Eos % (Auto) Baso % (Auto) Lymph # [place] # Eos # Baso # Add Manual Diff Seg Neutrophils % Seg Neutrophils # PT 12.7 INR 0.98 APTT 20.4 L Sodium Potassium Chloride Carbon Dioxide Anion Gap BUN Creatinine Estimated GFR BUN/Creatinine Ratio Glucose Calcium Total Bilirubin AST ALT Alkaline Phosphatase Total Protein Albumin Albumin/Globulin Ratio Medications & Allergies - Medications Allergies/Adverse Reactions: Allergies ceftriaxone [From Rocephin] Allergy (Verified 11/02/18 21:51) Anaphylaxis ciprofloxacin [From Cipro] Allergy (Verified 11/02/18 21:50) Anaphylaxis divalproex sodium [From Depakote] Allergy (Verified 11/02/18 21:51) Anaphylaxis ketorolac [From Toradol] Allergy (Verified 11/02/18 21:49) Hives levofloxacin [From Levaquin] Allergy (Verified 11/02/18 21:50) Anaphylaxis metoclopramide [From Reglan] Allergy (Verified 11/02/18 21:49) Hives iv contrast Allergy (Uncoded 11/02/18 21:49) Hives Home Medications: Home Medications Medication Instructions Recorded Confirmed Last Taken Type Aspirin [Aspirin BABY CHEW TAB] 1 tab PO DAILY 11/03/18 11/03/18 Unknown History Citalopram [celeXA] 1 tab PO DAILY 11/03/18 11/03/18 Unknown History Pantoprazole [Protonix TAB] 1 tab PO DAILY 11/03/18 11/03/18 Unknown History Promethazine [Phenergan] 1 tab PO Q8HR PRN 11/03/18 11/03/18 Unknown History Warfarin [Coumadin] 20 mg PO DAILY 11/03/18 11/03/18 Unknown History lamoTRIgine [LaMICtal] 75 mg PO BID 11/03/18 11/03/18 Unknown History Active Medications: Generic Name Dose Route Start Last Admin Trade Name Freq PRN Reason Stop Dose Admin Aspirin 325 mg 11/04/18 10:00 11/06/18 09:22 Ecotrin PO Not Given QDAY ASHLEIGH Enoxaparin Sodium 50 mg 11/06/18 20:00 11/06/18 20:50 Lovenox SUB-Q 50 mg 0600,1800 ASHLEIGH Administration Hydromorphone HCl 0.5 mg 11/03/18 22:21 11/07/18 01:08 Dilaudid IV 0.5 mg Q3H PRN Administration Pain , Severe (7-10) Sodium Chloride 1,000 mls @ 100 mls/hr 11/03/18 16:00 11/07/18 01:51 Nacl 0.9% 1000 Ml IV 100 mls/hr DIRECT ASHLEIGH Administration Sodium Chloride 1,000 mls @ 50 mls/hr 11/06/18 15:00 11/06/18 15:26 Nacl 0.9% 1000 Ml IV 50 mls/hr DIRECT ASHLEIGH Administration Lamotrigine 75 mg 11/03/18 22:00 11/06/18 22:49 Lamictal PO 75 mg BID ASHLEIGH Administration Morphine Sulfate 2 mg 11/03/18 12:22 11/06/18 22:49 Morphine IV 2 mg Q4H PRN Administration Pain, Moderate (4-6) Nitroglycerin 0.4 mg 11/03/18 03:10 11/03/18 20:36 Nitrostat SL 0.4 mg Q5M PRN Administration Chest Pain Ondansetron HCl 4 mg 11/03/18 15:00 11/07/18 01:49 Zofran IV 4 mg Q6H PRN Administration Nausea Oxycodone/Acetaminophen 1 tab 11/04/18 21:30 11/05/18 05:37 Percocet 5/325 PO 1 tab Q4H PRN Administration Pain, Moderate (4-6) Promethazine HCl 25 mg 11/04/18 21:31 11/05/18 16:53 Phenergan PO 25 mg Q6H PRN Administration Nausea And Vomiting Sodium Chloride 10 ml 11/03/18 03:10 Sodium Chloride Flush Syringe 10 Ml IV PRN PRN LINE FLUSH Sucralfate 1 gm 11/06/18 22:00 11/06/18 22:49 Carafate PO 1 gm BID ASHLEIGH Administration
[2018-11-07 09:02] VITALS: BP 136/80
--- NOTE | 2018-11-07 09:35 | Discharge Summary ---
Providers - Providers Date of Admission: 11/06/18 09:58 Date of discharge: 11/07/18 Attending physician: CASSANDRA ALARCON MD 11/03/18 Consult to Cardiac Rehabilitation [CONS] Routine Reason For Exam: Phase I 11/03/18 06:03 Consult to Physician [CONS] Routine Comment: Consulting Provider: FRANCISCO WANG Physician Instructions: Reason For Exam: gob 11/03/18 06:04 Consult to Physician [CONS] Routine Comment: Consulting Provider: MILO LEGER Physician Instructions: Reason For Exam: protein c/s def, IGIB 11/05/18 07:17 Consult to Physician [CONS] Routine Comment: Consulting Provider: JESE GILLIAM Physician Instructions: Reason For Exam: cardiac clearance for endoscopy Primary care physician: PICK UP AND DELIVERY DRIVER Hospitalization Reason for admission: GI bleed, coagulation abnormality Condition: Stable Pertinent studies: head CT CT of the chest, V/Q scan CT abdomen and pelvis Procedures: EGD Hospital course: 38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 Also stated that she had 4 episodes of hematemesis. She is maintained on 20 mg of Coumadin and yesterday her INR was therapeutic. Physical exam is benign no hematemesis noted in the emergency room. D-dimer was high and CTA was done to PE. Cardiology, GI and hematology was consulted Hematemesis; GI did an EGD and showed no bleeding, recommended to continue her anti coagulation. Hypercoagulable; Prot C an S def. hematology was consulted after GI clearance and recommended to d/c home with BID lovenox. Patient advised to follow with her glycerin supervisor. Chest pain; resolved, cardiology cleared for EGD. Prior to discharge patient was anxious and became tachycardic, sinus tachycardia 130 on the monitor and cardiology saw her and wants EKG but patient declines and wants to go home and follow with her office support clerk. Abd pain. CT A/P negative. Hx of CVA; stable. Patient discharged home. Disposition: DC- LEFT AGAINST MED ADVICE Time spent for discharge: 32 minutes - Discharge Diagnoses (1) Anemia Status: Chronic Qualifiers: Anemia type: iron deficiency (2) Chest pain Status: Acute Qualifiers: Chest pain type: other chest pain Qualified Code(s): R07.89 - Other chest pain; R07.8 - Other chest pain (3) Pulmonary emboli Status: Chronic Qualifiers: Chronicity: chronic (4) Upper GI bleed Status: Acute (5) Protein S deficiency Status: Chronic Core Measure Documentation - Palliative Care Palliative Care/ Comfort Measures: Not Applicable - Core Measures Any of the following diagnoses?: history only (PE) Exam - Physical Exam Narrative exam: Not in cardiopulmonary distress. The patient appeared well nourished and normally developed. Vital signs as documented. Head exam is unremarkable. No scleral icterus . Neck is without jugular venous distension, thyromegaly, or carotid bruits. Lungs are clear to auscultation. Cardiac exam reveals regular rate and Rhythm. First and second heart sounds normal. No murmurs, rubs or gallops. Abdominal exam reveals normal bowel sounds, no masses, no organomegaly and no aortic enlargement. Extremities are nonedematous and both femoral and pedal pulses are normal. CONSUMER LOAN SPECIALIST: Alert and oriented 3. No focal weakness. - Constitutional Vitals: Temp Pulse Resp BP Pulse Ox 98.3 F 105 H 18 136/80 94 11/07/18 08:46 11/07/18 08:46 11/07/18 08:46 11/07/18 08:46 11/07/18 08:46 Plan Activity: no restrictions Weight Bearing Status: Full Weight Bearing Diet: regular Care Plan Goals: Patient advised to have follow-up with her glycerin supervisor as an outpatient. Follow up with: MARI CERDA MD [Primary Care Provider] - 3-5 Days CALIXTO SINGH MD [Staff Physician] - 14 Days (if patient doesn't have established PCP.) Forms: AMA Form Prescriptions: Enoxaparin [Lovenox] 50 mg SUB-Q Q12HR #14 syringe
--- NOTE | 2018-11-07 10:58 | Progress Note ---
Assessment and Plan Hematemesis Pre-op cardiac risk assessment Hx of pulmonary embolism Hx of protein C and S deficiency on warfarin as an outpatient Anemia s/p transfusion of PRBCs Hx of gastric surgery Subjective Date of service: 11/07/18 Principal diagnosis: anemia - h/o GI bleed Interval history: 1 day status post EGD. Patient complains of chest pain. She appears anxious. Objective Vital Signs Temp Pulse Resp BP Pulse Ox 11/07/18 08:46 98.3 F 105 H 18 136/80 94 11/07/18 04:11 98.3 F 97 H 16 123/77 97 11/06/18 23:43 99.3 F 86 16 129/86 95 11/06/18 22:00 104 H 11/06/18 20:00 97.7 F 114 H 18 150/67 93 11/06/18 17:06 97.9 F 92 H 18 140/89 96 11/06/18 16:31 89 10 L 136/88 96 11/06/18 16:19 83 12 134/90 98 11/06/18 16:11 90 15 112/68 97 11/06/18 16:00 98.5 F 103 H 16 129/78 99 11/06/18 15:20 98.8 F 111 H 19 134/87 98 11/06/18 15:15 98.8 F 111 H 19 134/87 98 11/06/18 12:36 98.6 F 95 H 18 142/91 98 - Physical Examination General: No Apparent Distress HEENT: Positive: PERRL Neck: Positive: neck supple Cardiac: Positive: Tachycardia Lungs: Positive: Decreased Breath Sounds Neuro: Positive: Grossly Intact Abdomen: Positive: Soft Extremities: Absent: edema - Labs and Meds Coagulation 11/06/18 Range/Units 10:15 PT 12.7 (12.2-14.9) Sec. INR 0.98 (0.87-1.13) APTT 20.4 L (24.2-36.6) Sec.
[2018-11-07] MEDS ORDERED: FLUSH HEPARIN IV ONE (12:11)
[2018-11-07] MEDS ORDERED: LOVENOX SUB-Q SCH (22:00)
== END 2018-11-07 13:03 | disposition left against medical advice (07) | DRG 378 ==
LOC: ED 21:12 → 4A 11-03 02:17 → OBSVTOIN 11-06 09:58
PROVIDERS: ADMIT Internal Medicine; ATTEND Internal Medicine
PROC: 0DJ08ZZ Inspection of Upper Intestinal Tract, Via Natural or Artificial Opening Endoscopic (ICD-10-PCS; principal; 2018-11-06)
PROC: 30233N1 Transfusion of Nonautologous Red Blood Cells into Peripheral Vein, Percutaneous Approach (ICD-10-PCS; 2018-11-06)
DX: K92.2 Gastrointestinal hemorrhage, unspecified (principal); D68.59 Other primary thrombophilia; R04.2 Hemoptysis; I27.82 Chronic pulmonary embolism; D50.9 Iron deficiency anemia, unspecified; R07.89 Other chest pain; K20.9 Esophagitis, unspecified; E87.6 Hypokalemia; I25.10 Atherosclerotic heart disease of native coronary artery without angina pectoris; Z90.710 Acquired absence of both cervix and uterus; Z79.82 Long term (current) use of aspirin; Z88.1 Allergy status to other antibiotic agents; Z88.8 Allergy status to other drugs, medicaments and biological substances; Z86.73 Personal history of transient ischemic attack (TIA), and cerebral infarction without residual deficits; Z86.718 Personal history of other venous thrombosis and embolism; Z79.01 Long term (current) use of anticoagulants
CPT/HCPCS: 36415; 36430; 70450; 71045; 71270; 74176; 78582; 80048; 80053; 80061; 80307; 81001; 82607; 82728; 82747; 83550; 84484; 85025; 85027; 85379; 85610; 85730; 86850; 86900; 86901; 86920; 87116; 93005; 93010; 96361; 96374; 96375; G0378; A9540; A9558; C9113; J1170; J1642; J1650; J2270; J2405; J2704; J2785; J2916; J3010; J3480; J7030; J7040; J7512; P9016; Q0169; Q9967